=== PATIENT | female | born 1980 | race Caucasian/White ===

== ENCOUNTER → 2020-08-08 08:28 | Outpatient (BNVA) | payer OTHER, SELFPAY | PROVIDERS: Visit Provider Dietitian, Registered | DX: Z76.89 Persons encountering health services in other specified circumstances (principal) ==

== ENCOUNTER → 2020-09-22 08:12 | Outpatient (BNVA) | payer OTHER, SELFPAY | PROVIDERS: PCP Family Medicine; Visit Provider Surgery | DX: Z76.89 Persons encountering health services in other specified circumstances (principal) ==

== ENCOUNTER → 2020-10-07 08:46 | Outpatient (BNVA) | payer BC, SELFPAY | PROVIDERS: PCP Family Medicine; Visit Provider Physician Assistant ==

== ENCOUNTER → 2020-12-27 08:22 | Outpatient (BNVA) | payer BC, SELFPAY | PROVIDERS: PCP Family Medicine; Visit Provider Dietitian, Registered | DX: Z90.3 Acquired absence of stomach [part of] (principal) | CPT/HCPCS: 97803 ==

== ENCOUNTER → 2021-04-14 07:45 | Outpatient (BNVA) | payer BC, SELFPAY | PROVIDERS: PCP Family Medicine; Visit Provider Dietitian, Registered | DX: Z90.3 Acquired absence of stomach [part of] (principal) | CPT/HCPCS: 97803 ==

== ENCOUNTER → 2021-07-12 14:02 | Outpatient (BNVA) | payer BC, SELFPAY | PROVIDERS: PCP Family Medicine; Referring Provider Family Medicine; Visit Provider Physician Assistant Surgical ==

== ENCOUNTER → 2021-07-31 12:35 | Outpatient (BNVA) | payer BC, SELFPAY | PROVIDERS: PCP Family Medicine; Referring Provider Family Medicine; Visit Provider Surgery ==

== ENCOUNTER 2021-08-08 13:46 | Day surgery (SDC) | payer BC, SELFPAY ==
[2021-07-27 09:58] VITALS: BMI 26.3
[2021-07-31 13:51] LABS: MANUAL DIFF FLAG NO
[2021-07-31 14:11] LABS: Basophils Absolute Auto 0.1 X10*3/uL (0.0-0.2); Basophils Percent Auto 1.5 % (0-2); Eosinophils Absolute Auto 0.2 X10*3/uL (0.0-0.4); Eosinophils Percent Auto 2.6 % (0-4); Hematocrit 36.5 % (37.0-47.0); Hemoglobin 12.1 g/dl (12.0-16.0); Imm Gran Abs Auto 0.01 X10*3/uL (0.00-0.03); Imm Gran Pct Auto 0.2 % (0.0-0.4); Lymphocytes Absolute Auto 2.2 X10*3/uL (1.2-4.9); Lymphocytes Percent Auto 35.1 % (20-40); Mean Corpuscular HGB Conc 33.2 g/dl (31.0-35.0); Mean Corpuscular Hemoglobin 28.6 pg (27.0-33.0); Mean Corpuscular Volume 86.3 fL (80.0-98.0); Monocytes Absolute Auto 0.4 X10*3/uL (0.1-1.2); Monocytes Percent Auto 6.7 % (2-11); Neutrophils Absolute Auto 3.3 x10*3/uL (2.0-8.3); Neutrophils Percent Auto 53.9 % (45-73); Platelet Count 320 X10*3/uL (160-400); Red Blood Count 4.23 X10*6/uL (4.20-5.50); Red Cell Distribution Width 13.3 % (11.0-16.0); White Blood Count 6.2 X10*3/uL (4.8-10.8)
[2021-07-31 14:19] LABS: Estimated Average Glucose 100 mg/dL; Hemoglobin A1c % 5.1 %
[2021-07-31 14:20] LABS: INTERNATIONAL NORM RATIO 1.1 (0.9-1.1)
[2021-07-31 14:22] LABS: Partial Thromboplastin Time 35.9 SEC (24.1-38.0)
[2021-07-31 14:39] LABS: Alanine Aminotransferase 31 U/L (0-31); Albumin Level 4.1 g/dL (3.5-5.0); Alkaline Phosphatase 52 U/L (39-117); Anion Gap 14 (12-20); Aspartate Amino Transferase 20 U/L (5-31); Bilirubin Total 1.4 mg/dL (0.0-1.0); Blood Urea Nitrogen 15 mg/dL (9-16); C Reactive Protein 0.17 mg/dL (< or = 0.50); Calcium 8.9 mg/dL (8.4-10.2); Carbon Dioxide 24 mmol/L (22-29); Chloride 105 mmol/L (96-108); Cholesterol 215 mg/dL; Creatinine Clr Calc Pharmacy 90.2; Estimated Glomerular Filt Rate > 60; Glucose Fasting 93 mg/dL (60-99); HDL Cholesterol 91 mg/dL; Iron 83 mcg/dL (30-160); LDL Cholesterol Calculated 109 mg/dl; Percent Iron Saturation 24 % (15-50); Potassium 4.5 mmol/L (3.3-5.1); Sodium 138 mmol/L (135-145); Total Iron Binding Capacity 347 mcg/dL (228-428); Total Protein 7.3 g/dL (6.5-8.0); Triglycerides 75 mg/dL; Unsaturated Iron Binding 264 ug/dL
[2021-07-31 14:59] LABS: Ferritin 30 ng/mL (10-250); TSH reflex Free T4 0.54 uIU/mL (0.32-4.0); Vitamin D 25-OH Total 48.3 ng/mL (>30)
[2021-07-31 15:09] LABS: Folate 18.4 ng/mL (> or = 4.0); Vitamin B12 1067 pg/mL (200-900)
[2021-08-02 12:12] LABS: Calcium (PTHI) 9.2 mg/dL (8.6-10.2); PTHI 37 pg/mL (14-64)
[2021-08-04 14:07] LABS: Zinc 59 mcg/dL (60-130)
--- NOTE | 2021-08-05 00:31 | MHC.SHP ---
Pre-Procedural Eval Section A Date of Service: 08/05/21 The patient is an INPATIENT: No The History & Physical has been completed within 30 days and I have reviewed it.: Yes Section B Chief Complaint: Excessive and redundant skin Relevant Family History (Specify if Yes): No Relevant Social History: None Present Medications: None Medical History: No relevant PMH History of Previous Operations: Relevant previous surgery/procedure and date(s) (sleeve gastrectomy) Allergies: Allergies Allergy/AdvReac Type Severity Reaction Status Date / Time latex [LATEX] Allergy Intermediate MILD Verified 07/31/21 12:43 ITCHING wellbutrin Allergy Unknown anxiety Uncoded 07/31/21 12:43 extreme Review of Systems Sugical H&P ROS: Negative: Constitution, Cardiovascular, Respiratory, Neurological, Psychiatric, Hem-Onc, Allergic/Immunologic, Gastrointestinal, Genitourinary, Musculoskeletal, Integumentary, Endocrine and Eyes/Ears/Nose/Throat Exam Surgical H&P Exam: Normal: HEENT, Normal: Heart, Normal: Lungs, Normal: Extremities, Normal: Abdomen, Normal: Skin and Normal: Neurological Plan Diagnosis/Plan: Unchanged I have reviewed the history and physical and performed a pertinent physical examination on my patient. No changes have occurred unless specified.
[2021-08-05 01:46] LABS: Vitamin A 45 mcg/dL (38-98)
[2021-08-05 11:07] LABS: Vitamin B1 24 nmol/L (8-30)
--- NOTE | 2021-08-07 10:16 | P.CONAN_ITS ---
Documented by User: Lucie Baeza NP 08/07/21 10:24 HPI - Anesthesia Eval Consult details Narrative: 40yo F for Panniculectomy Pulmo cleared for GA s/p gastric sleeve 2020 PMFSH Active Problems Active Problems: All Active Problems (Updated 07/31/21 @ 15:15 by Silas Puckett MD) Cellulitis (Acute) Postgastrectomy malabsorption (Acute) Excess skin (Acute) Intestinal malabsorption following gastrectomy (Acute) Past Medical History Medical History (Updated 08/07/21 @ 10:23 by Lucie Baeza NP) Anemia COVID-19 vaccine series completed Hypothyroidism Intestinal malabsorption following gastrectomy [place] Obesity (BMI 30-39.9) RHETT (obstructive sleep apnea) Pulmonary hypertension Family History Family History Mother No problems noted. Father No problems noted. Brother No problems noted. Surgical History Surgical History (Updated 08/07/21 @ 10:57 by Maria De Jesus Mcclain PA-C) S/P bronchoscopy S/P cardiac cath S/P laparoscopic sleeve gastrectomy Social History Social History Are you a primary healthcare sales representative to a significant other at home: No Do you presently have visiting nurse or other home services: No Alcohol intake: current Alcohol intake frequency: holidays/special occasions only Patient Tobacco Use Status: Never used Tobacco Use of substances other than those prescribed or required for medical reasons: No Have you been hit, kicked, punched, or otherwise hurt by someone within the past year? If so, by whom?: No Are you DNR?: No Advance Directives: No Advance Directives Information Provided: No Advance Directives on File: No Recently lost weight without trying: No How much weight loss: 34pounds or more Eating poorly because of decreased appetite: No Nutrition screen score: 4 Nutrition Risks: No Nutritional Risk Patient : No FDLMP: 6 weeks ago : No Meds Allergies Allergy/AdvReac Type Severity Reaction Status Date / Time latex [LATEX] Allergy Intermediate MILD Verified 07/31/21 12:43 ITCHING wellbutrin Allergy Unknown anxiety Uncoded 07/31/21 12:43 extreme Active Medications: Current Medications Lactated Ringer's (Lr) 1,000 mls @ 100 mls/hr IVCONT .Q10H LACHELLE Home Medications Medication Instructions Recorded Confirmed Last Taken Type Celebrate MVI PO 10/07/20 07/31/21 Unknown History Celebrate calcium chews PO 10/07/20 07/31/21 Unknown History ambrisentan 10 mg tablet (Letairis) 10 mg PO DAILY 10/07/20 07/31/21 Unknown History biotin 5,000 mcg disintegrating 10,000 mcg PO DAILY 10/07/20 07/31/21 Unknown History tablet etonogestrel 68 mg subdermal SUBDERMAL 10/07/20 07/31/21 Unknown History implant (Nexplanon) fluoxetine 20 mg capsule 20 mg PO BID 10/07/20 07/31/21 08/08/21 History levothyroxine 112 mcg capsule 112 mcg PO DAILY 10/07/20 07/31/21 08/08/21 History lysine HCl 1,000 mg tablet 1,000 mg PO DAILY 10/07/20 07/31/21 Unknown History methylcellulose (laxative) 500 mg 500 mg PO BID PRN 10/07/20 07/31/21 Unknown History tablet (Citrucel) acetaminophen 500 mg tablet 500 mg PO Q6H PRN 07/27/21 07/31/21 Unknown History Exam Exam Date and Time: August 07, 2021 1016 Height,Weight and Vital Signs: Height 5 ft 4.5 in Weight 70.76 kg Pertinent Lab Results Pertinent Lab Results: Laboratory Tests 07/31/21 07/31/21 07/31/21 13:40 13:49 13:49 WBC 6.2 RBC 4.23 Hgb 12.1 Hct 36.5 L MCV 86.3 MCH 28.6 MCHC 33.2 RDW 13.3 Plt Count 320 MPV 9.0 L Immature Gran % (Auto) 0.2 Neut % (Auto) 53.9 Lymph % (Auto) 35.1 [place] % (Auto) 6.7 Eos % (Auto) 2.6 Baso % (Auto) 1.5 Lymph # (Auto) 2.2 [place] # (Auto) 0.4 Eos # (Auto) 0.2 Baso # (Auto) 0.1 Abs Immat Gran (auto) 0.01 Absolute Neuts (auto) 3.3 Absolute Nucleated RBC 0.000 Nucleated RBC % (auto) 0.0 PT INR APTT Sodium 138 Potassium 4.5 Chloride 105 Carbon Dioxide 24 Anion Gap 14 BUN 15 Creatinine 0.80 Estim Creat Clear Calc 90.2 Estimated GFR > 60 Random Glucose TNP Fasting Glucose 93 Estimat Average Glucose Hemoglobin A1c % Calcium 8.9 Iron 83 TIBC 347 % Saturation 24 Unsat Iron Binding 264 Ferritin 30 Total Bilirubin 1.4 H AST 20 ALT 31 Alkaline Phosphatase 52 C-Reactive Protein 0.17 Total Protein 7.3 Albumin 4.1 Triglycerides 75 Cholesterol 215 LDL Cholesterol, Calc 109 HDL Cholesterol 91 Vitamin A Vitamin B1 Vitamin B12 25-OH Vitamin D Total 48.3 Folate TSH 0.54 PTH Intact Calcium (PTH Intact) Zinc Blood Type B Positive Antibody Screen NEGATIVE 07/31/21 07/31/21 07/31/21 13:49 13:49 13:49 WBC RBC Hgb Hct MCV MCH MCHC RDW Plt Count MPV Immature Gran % (Auto) Neut % (Auto) Lymph % (Auto) [place] % (Auto) Eos % (Auto) Baso % (Auto) Lymph # (Auto) [place] # (Auto) Eos # (Auto) Baso # (Auto) Abs Immat Gran (auto) Absolute Neuts (auto) Absolute Nucleated RBC Nucleated RBC % (auto) PT INR APTT Sodium Potassium Chloride Carbon Dioxide Anion Gap BUN Creatinine Estim Creat Clear Calc Estimated GFR Random Glucose Fasting Glucose Estimat Average Glucose 100 Hemoglobin A1c % 5.1 Calcium Iron TIBC % Saturation Unsat Iron Binding Ferritin Total Bilirubin AST ALT Alkaline Phosphatase C-Reactive Protein Total Protein Albumin Triglycerides Cholesterol LDL Cholesterol, Calc HDL Cholesterol Vitamin A 45 Vitamin B1 24 Vitamin B12 1067 H 25-OH Vitamin D Total Folate 18.4 TSH PTH Intact Calcium (PTH Intact) Zinc Blood Type Antibody Screen 07/31/21 07/31/21 07/31/21 13:49 13:49 13:49 WBC RBC Hgb Hct MCV MCH MCHC RDW Plt Count MPV Immature Gran % (Auto) Neut % (Auto) Lymph % (Auto) [place] % (Auto) Eos % (Auto) Baso % (Auto) Lymph # (Auto) [place] # (Auto) Eos # (Auto) Baso # (Auto) Abs Immat Gran (auto) Absolute Neuts (auto) Absolute Nucleated RBC Nucleated RBC % (auto) PT 12.0 INR 1.1 APTT 35.9 Sodium Potassium Chloride Carbon Dioxide Anion Gap BUN Creatinine Estim Creat Clear Calc Estimated GFR Random Glucose Fasting Glucose Estimat Average Glucose Hemoglobin A1c % Calcium Iron TIBC % Saturation Unsat Iron Binding Ferritin Total Bilirubin AST ALT Alkaline Phosphatase C-Reactive Protein Total Protein Albumin Triglycerides Cholesterol LDL Cholesterol, Calc HDL Cholesterol Vitamin A Vitamin B1 Vitamin B12 25-OH Vitamin D Total Folate TSH PTH Intact 37 Calcium (PTH Intact) 9.2 Zinc 59 L Blood Type Antibody Screen Narrative Narrative: Exercise testing in pulmo clinic 07/27/21 Complete normalization of exercise physiology ECHO 07/2020 LVEF 60-65% LA mildly dilated Pulmo venous flow normal Trivial to small pericardial effusion located circumferentially. No evidence of tamponade Assessment and Plan Assessment Anesthesia Assessment: Chart Reviewed Documented by User: Delonte Miller 08/08/21 15:14 [facility] Past Medical History Medical History (Updated 08/07/21 @ 10:23 by Lucie Baeza NP) Anemia COVID-19 vaccine series completed Hypothyroidism Intestinal malabsorption following gastrectomy [place] Obesity (BMI 30-39.9) RHETT (obstructive sleep apnea) Pulmonary hypertension Functional capacity: independent ambulation Family History Family History Mother No problems noted. Father No problems noted. Brother No problems noted. Family history of problems with anesthesia: No Surgical History Surgical History (Updated 08/07/21 @ 10:57 by Maria De Jesus Mcclain PA-C) S/P bronchoscopy S/P cardiac cath S/P laparoscopic sleeve gastrectomy History of Problems with Anesthesia: No Social History Social History Are you a primary healthcare sales representative to a significant other at home: No Do you presently have visiting nurse or other home services: No Alcohol intake: current Alcohol intake frequency: holidays/special occasions only Patient Tobacco Use Status: Never used Tobacco Use of substances other than those prescribed or required for medical reasons: No Have you been hit, kicked, punched, or otherwise hurt by someone within the past year? If so, by whom?: No Are you DNR?: No Advance Directives: No Advance Directives Information Provided: No Advance Directives on File: No Recently lost weight without trying: No How much weight loss: 34pounds or more Eating poorly because of decreased appetite: No Nutrition screen score: 4 Nutrition Risks: No Nutritional Risk Patient : No FDLMP: 6 weeks ago : No Meds Allergies Allergy/AdvReac Type Severity Reaction Status Date / Time latex [LATEX] Allergy Intermediate MILD Verified 07/31/21 12:43 ITCHING wellbutrin Allergy Unknown anxiety Uncoded 07/31/21 12:43 extreme Home Medications Medication Instructions Recorded Confirmed Last Taken Type Celebrate MVI PO 10/07/20 07/31/21 Unknown History Celebrate calcium chews PO 10/07/20 07/31/21 Unknown History ambrisentan 10 mg tablet (Letairis) 10 mg PO DAILY 10/07/20 07/31/21 Unknown History biotin 5,000 mcg disintegrating 10,000 mcg PO DAILY 10/07/20 07/31/21 Unknown History tablet etonogestrel 68 mg subdermal SUBDERMAL 10/07/20 07/31/21 Unknown History implant (Nexplanon) fluoxetine 20 mg capsule 20 mg PO BID 10/07/20 07/31/21 08/08/21 History levothyroxine 112 mcg capsule 112 mcg PO DAILY 10/07/20 07/31/21 08/08/21 History lysine HCl 1,000 mg tablet 1,000 mg PO DAILY 10/07/20 07/31/21 Unknown History methylcellulose (laxative) 500 mg 500 mg PO BID PRN 10/07/20 07/31/21 Unknown History tablet (Citrucel) acetaminophen 500 mg tablet 500 mg PO Q6H PRN 07/27/21 07/31/21 Unknown History Exam Airway Mallampati Class: II TM Dist: >3cm Neck ROM: Full Loose/Missing/Broken Teeth: No (Implant and Cap on upper) Heart: rrr Lungs: clear breath sounds bilaterally Assessment and Plan Final Anesthetic Review Family History of Problems with Anesthesia: No History of Problems with Anesthesia: No NPO: Yes ASA Class: II Final Preanesthetic Review: Meds/Allgs Chart Reviewed and Anes Risks/Benef Reviewed Patient Risk: Intermediate Procedure Risk: Intermediate Anesthetic Plan Anesthetic Plan: GA Disposition: Standard PACU
[2021-08-08] VITALS (9 sets, daily range): BP systolic 94–111; BP diastolic 47–66; PULSE 57–98; RESP 14–20; TEMP 36.1–36.3; O2SAT 92–98
[2021-08-08 14:18] LABS: UPreg QC Valid YES; Urine Pregnancy NEGATIVE (NEGATIVE)
[2021-08-08] MEDS: Lactated Ringers 1,000 ML 100 ML IVCONT ×2 (14:20→21:54)
[2021-08-08 14:29] LABS: COVID-19 Test Negative (Negative)
--- NOTE | 2021-08-08 15:17 | PC.NURSE ---
pt voided in the bathroom
--- NOTE | 2021-08-08 16:26 | P.PNGS_ITS ---
Subjective Subjective Date of Service: 08/09/21 Interval history: Patient has mild incisional pain, but was able to ambulate and use the incentive spirometer. She is tolerating phase 1 bariatric diet Physical Exam Vital Signs: Vital Signs: Last Vital Signs Temp 97.2 F 08/08/21 13:57 Pulse 57 08/08/21 13:57 Resp 18 08/08/21 13:57 BP 101/66 08/08/21 13:57 Pulse Ox 98 08/08/21 13:57 Body Mass Index 26.3 GI: Inspection: Yes normal to inspection, Yes incision (clean, dry and intact, flaps & umbilicus viable) and Yes other (Daniel drain with serosanguinous fluid) Extrem: Right lower extremity: normal to inspection (no calf tenderness) Left lower extremity: normal to inspection (no calf tenderness) Objective Data Active Medications Lactated Ringer's (Lr) 1,000 mls @ 100 mls/hr IVCONT .Q10H LACHELLE Last Admin: 08/08/21 14:20 Dose: 100 mls/hr Documented by: LELE Lactated Ringer's (Lr) 1,000 mls @ 100 mls/hr IVCONT .Q10H [facility] Labs CBC & Chem 7: 08/09/21 05:33 08/09/21 05:33 Labs: Laboratory Results - last 24 hr 08/08/21 08/08/21 13:50 13:50 Urine Test NEGATIVE COVID-19 (ELSY) Negative COVID-19 Clin Com See Note Procedures Date of Service Date of Service: 08/09/21 Progress Note: A&P Assessment and plan (1) Cellulitis: Status: Acute (2) Excess skin: Status: Acute Assessment and Plan: Doing well D/C Hanson and ambulate with assistance Dressing were changed and explained to the patient how to do the dressing changes VNA will be arranged Check am labs. If OK, will discharge home? Fall Risk Details Current Medications: Current Medications Lactated Ringer's (Lr) 1,000 mls @ 100 mls/hr IVCONT .Q10H LACHELLE Last Admin: 08/08/21 14:20 Dose: 100 mls/hr Documented by: Lactated Ringer's (Lr) 1,000 mls @ 100 mls/hr IVCONT .Q10H [facility] Time Spent With Patient Time: Total time spent is greater than 50% in coordination of care (as documented) at patient's floor/unit and/or counseling patient: Time with patient: less than 15 minutes Quality Stroke Does the patient have a stroke diagnosis?: No VTE Prior VTE?: No VTE Risk Level:: Surgical - moderate VTE Device Contraindication: N/A - Device Ordered VTE Drug Contraindication: Treatment Not Indicated
--- NOTE | 2021-08-08 16:30 | PM.OP ---
Brief Operative Note Date of Service: 08/08/21 Pre-op diagnosis: panniculitis and excess skin Post-op diagnosis: same Procedure: PROCEDURE: Panniculectomy with umbilical transposition and omental flap INDICATION: This a 40 year old female who underwent laparoscopic sleeve gastrectomy on 09/22/2019. She had an excellent result achieving a BMI of 26.4 kg/m2 with a total weight loss of 97.4lbs. As a result, she has developed panniculitis which has not resolved despite continuous use of clotrimazole ointment. On exam she has extreme skin laxity and the abdominal pannus completely hiding the genitalia. Panniculectomy was recommended. We discussed the two options for the panniculectomy of using a combined vertical and horizontal incisions or just a horizontal (bikini) incision. It was my recommendation to do only horizontal incision based on her body habitus and skin laxity. The patient agreed with this. Risks and complications were discussed with the patient including bleeding, infection, umbilical loss, flap necrosis, asymmetry, dehiscence, seroma, VTE. The patient understood the risks and was in agreement to proceed with surgery. PROCEDURE: The incisions were appropriately marked at the preop area with the patient standing and laying down. After induction of general anesthesia a Hanson catheter and pneumatic compression devices were placed. The patient was prepped and draped in the usual sterile manner and the incisions were marked again and confirmed. The skin was infiltrated with lidocaine and epinephrine. The #10 blade scalpel was used for the large incisions and the #15 blade scalpel for the umbilicus. Cautery was used to divide the subcutaneous tissues until the fascia was identified. Then I used the Thunderbeat (Olympus) to separate the pannus from the fascia. The inferior incision was made initially and I mobilized the flap for a several centimeters cephalad to the umbilicus. The umbilicus was incised circumferentially and detached from the surrounding tissues all the way to the fascia while its stalk was preserved. With the patient in reflex position I confirmed that the skin flaps were appropriate and would allow for the tissues to come together with reasonable tension. At that point a horizontal incision was made 4 cm above the umbilicus. #10 blade was used for the skin, cautery for the dermis and the Thunderbeat for the remaining tissues. An omental flap was raised from the upper flap in order to fill the space under the skin and support the closure of the two flaps. In addition the inferior flap was mobilized caudally for a few centimeters to create a space for the omental flap as well as relieve tension from the closure. A circumferential incision was made at the area where the umbilicus would be re-implanted. The umbilicus was appropriately oriented and was delivered through the defect and was secured in place with a [place]. No bleeding was noted anywhere. One Daniel drain was placed from the right corner of the horizontal incision across the wound and was secured in place with a silk suture. The omental flap was secured under the inferior flap with several interrupted 3.0 Monocryl sutures. The two flaps were brought together and were attached at the midline of the horizontal incision with a #3.0 Monocryl suture. At that point the umbilicus was properly oriented and was re-approximated to the skin with 8 interrupted 3.0 Monocryl sutures. In a similar fashion the skin flaps were re-approximated with multiple 3.0 Monocryl sutures. The skin was closed in all incisions and umbilicus with 4.0 Monocryl sutures. Steri-strips, xeroform gauzes and gauzes were used to cover the incisions. An abdominal binder was also placed. The was awaken and was transferred to the recover room in a stable condition. I was present and performed the entire procedure. Mehul Mcclain was the processing assistant. William Puckett MD, PhD, FACS Surgeon: Silas Puckett MD ?? Surgeon: Silas Puckett MD Anesthesia: GETA and local Was an Inside Sales Account Representative used for this Procedure?: No Inside Sales Account Representative: Maria De Jesus Mcclain Estimated blood loss (mL): 10 Pathology: other (Abdominal pannus) Condition: stable Disposition: PACU
--- NOTE | 2021-08-08 19:40 | P.DS_ITS ---
DS: Providers Provider Date of Service: 08/09/21 Primary care physician: Robinson Lenz MD DS: Diagnosis Discharge Diagnosis (1) Cellulitis: Status: Acute (2) Excess skin: Status: Acute DS: Summary Hospital Course Hospital Course: DISCHARGE SUMMARY ADMITTING DIAGNOSIS: panniculitis, s/p lap sleeve gastrectomy DISCHARGE DIAGNOSIS: The same. PAST SURGICAL HISTORY: Lap sleeve gastrectomy PROCEDURE: Panniculectomy. HISTORY OF PRESENT ILLNESS: The patient is a 40 year-old woman with a BMI of 26.4 kg/m2 and associated co- morbidities as described previous. The patient had a laparoscopic sleeve gastrectomy March 2020 and has lost a total of 100 lbs. As a result of the massive weight loss she developed a large abdominal pannus and persistent panniculitis recalcitrant to medical treatment. The patient was electively scheduled for panniculectomy. Risks and complications of the surgery were discussed with the patient in advance, particularly the possibility of , pulmonary embolism, skin necrosis, loss of umbilicus, flap necrosis, wound dehiscence, flap asymmetry, bleeding requiring transfusion. The patient understood all the risks and was in agreement with the surgical plan. On postoperative day #1 the patient was started on Phase 3 bariatric diet. The Hanson was discontinued. She was allowed to ambulate and she had no dizziness. During the first day, the patient did fairly well, having some incisional pain, but able to ambulate adequately and to tolerate liquids well. All dressings were taken down and the all incisions were inspected. There was no evidence of infection or bleeding or significant discharge. All flaps and umbilicus were viable and there was no dehiscence. GUEVARA drains had minimal output with serosanguinous fluid. Since the patient is doing well, we decided that the patient was ready to be discharged. The patient was given instructions to follow-up with me next week and to call my office for any fever over 101, persistent abdominal pain, nausea, vomiting, and symptoms of DVT such as calf tenderness, or leg swelling, or pulmonary embolism such as chest pain or shortness of breath. The patient was also instructed to drink 40-60 ounces of liquids per day using the 1-ounce cups and start on 3 Pure protein shakes per day. The patient was given prescription for Tylenol for pain, Zofran prn for nausea and a 10-day course of Keflex twice a day. The patient was encouraged to ambulate and use the incentive spirometer. However it was strongly recommended to do so with assistance and avoid any abdominal straining for at least one month. The patient was allowed only to do sponge baths, and encouraged to use the recliner at home and not the bed. All of these instructions were given to the patient personally. All questions were answered and the patient understood all instructions. The instructions were given to the patient in print as well. Time Spent with Patient Time attestation: Total time spent providing and/or coordinating discharge s ervices: Discharge coordination time: Less than 30 minutes Quality: Stroke Does the patient have a stroke diagnosis?: No Physical Exam Vital Signs: Vital Signs: Last Vital Signs Temp 97.2 F 08/08/21 13:57 Pulse 57 08/08/21 13:57 Resp 18 08/08/21 13:57 BP 101/66 08/08/21 13:57 Pulse Ox 98 08/08/21 13:57 Body Mass Index 26.3 DS: Data Data Completed and Pending Pending studies at discharge: Pending at discharge 08/08/21 19:39 Surgical [PTH] Routine Labs on day of discharge: Laboratory Results - last 24 hr 08/08/21 08/08/21 13:50 13:50 Urine Test NEGATIVE COVID-19 (ELSY) Negative COVID-19 Clin Com See Note Discharge Plan Discharge Patient Disposition: Home Health Service Referrals: [facility] [Outside] - 1 Day ([facility] FOR POST SURGICAL WOUND ASSESSMENT AND DRESSING CHANGES ANSD MONITORING OF J-P DRAIN ([facility] PRE ARRANGED WITH TONNY HANEY ON 08/02/22 PATIENT WILL BE STAYING AT HER PARENTS [address]SE ON [address] FOR ONE WEEK THEN GOING BACK TO HER HOME IN [place] ) Robinson Dalton MD [Primary Care Provider] - 1 Week Discharge Medications: New docusate sodium [Colace] 100 mg capsule 100 mg PO BID Qty: 60 RF: 0 Continued acetaminophen 500 mg Tablet 500 mg PO Q6H PRN (Reason: Pain) RF: 0 Nexplanon 68 mg implant subdermal RF: 0 ambrisentan [Letairis] 10 mg tablet 10 mg PO DAILY RF: 0 levothyroxine 112 mcg capsule 112 mcg PO DAILY RF: 0 fluoxetine 20 mg capsule 20 mg PO BID RF: 0 Celebrate MVI PO RF: 0 Celebrate calcium chews PO RF: 0 Citrucel 500 mg tablet 500 mg PO BID PRN (Reason: Constipation) RF: 0 biotin 5,000 mcg tablet,disintegrating 10,000 mcg PO DAILY RF: 0 lysine HCl 1,000 mg tablet 1,000 mg PO DAILY RF: 0 cephalexin 500 mg capsule 500 mg PO Q12H Qty: 30 RF: 2 Discharge Orders: Discharge Order (Routine); Ordered 08/09/21 Ordered By: Silas Puckett Activity Restrictions/Additional Instructions: 1) Record drain output for all 24 hour periods on drain output sheet. Bring sheet at the next office visit 2) Start Keflex antibiotic 3) No showers. Only sponge baths 4) Avoid any tension on the abdomen and always have help getting up. Use your arms to push off from chair/bed. 5) Take 1 tab of Colace and one tablespoon of Metamucil daily 6) Diet: 4 protein shakes, or 3 shakes and one bar, or 3 shakes and one meal (2oz meat and 2oz salad) 7) Wear binder at all times 8) Change dressings daily and send pictures to Dr. Puckett. Replace loose steri-strips and xeroform gauze along the incisions and umbilicus. 9) Supplies needed: ABD pads, 4x4 dressings, xeroform gauze, 1/2'' steri-strips, paper tape. You will need to use several of the above supplies on a daily basis.
[2021-08-08] MEDS: oxyCODONE HCl Immed Release 5 MG TABLET 10 MG PO (21:23)
[2021-08-08] MEDS: 0.9 % Sodium Chloride Flush 3 ML SYRINGE IVFLUSH (21:54)
[2021-08-09] MEDS: ondansetron HCL 4 MG/2 ML VIAL IVPUSH ×2 (01:17→09:47)
[2021-08-09] MEDS: ceFAZolin Sodium/Dextrose,Iso 2 GM/50 ML PIGGYBACK IV ×2 (01:18→09:48)
[2021-08-09] MEDS: Famotidine/PF 20 MG/2 ML VIAL IVPUSH (03:35)
[2021-08-09 04:00] VITALS: BP 98/55; PULSE 62; RESP 18; TEMP 36.1; O2SAT 97
[2021-08-09] MEDS: Levothyroxine Sodium 112 MCG TABLET PO (05:44)
[2021-08-09 05:46] LABS: MANUAL DIFF FLAG NO
[2021-08-09 05:52] LABS: Basophils Percent Auto 0.2 % (0-2); Hematocrit 30.2 % (37.0-47.0); Imm Gran Abs Auto 0.03 X10*3/uL (0.00-0.03); Imm Gran Pct Auto 0.3 % (0.0-0.4); Lymphocytes Absolute Auto 1.2 X10*3/uL (1.2-4.9); Lymphocytes Percent Auto 11.6 % (20-40); Mean Corpuscular HGB Conc 33.1 g/dl (31.0-35.0); Mean Corpuscular Hemoglobin 28.4 pg (27.0-33.0); Mean Corpuscular Volume 85.8 fL (80.0-98.0); Mean Platelet Volume 9.2 fL (9.4-12.3); Monocytes Absolute Auto 0.5 X10*3/uL (0.1-1.2); Monocytes Percent Auto 4.8 % (2-11); Neutrophils Absolute Auto 8.8 x10*3/uL (2.0-8.3); Neutrophils Percent Auto 83.1 % (45-73); Platelet Count 240 X10*3/uL (160-400); Red Blood Count 3.52 X10*6/uL (4.20-5.50); Red Cell Distribution Width 13.5 % (11.0-16.0); White Blood Count 10.6 X10*3/uL (4.8-10.8)
[2021-08-09 06:09] LABS: Anion Gap 12 (12-20); Blood Urea Nitrogen 10 mg/dL (9-16); Calcium 8.3 mg/dL (8.4-10.2); Carbon Dioxide 24 mmol/L (22-29); Chloride 103 mmol/L (96-108); Creatinine Clr Calc Pharmacy 91.3; Estimated Glomerular Filt Rate > 60; Glucose Random 155 mg/dL (60-115); Potassium 4.5 mmol/L (3.3-5.1); Sodium 134 mmol/L (135-145)
[2021-08-09 08:00] VITALS: BP 93/50; PULSE 56; RESP 18; TEMP 36.4; O2SAT 97
[2021-08-09] MEDS: Lactated Ringers 1,000 ML 100 ML IVCONT (09:46)
[2021-08-09] MEDS: Docusate Sodium 100 MG CAPSULE PO (09:47)
[2021-08-09] MEDS: FLUoxetine HCl 20 MG CAPSULE PO (09:47)
--- NOTE | 2021-08-09 10:18 | MHC.CM.PN ---
NURSE DINING CAR HOP NOTE LATE ENTRY FROM 08/02/21 RECIVED MESSAGE FROM BRETT TERRY WITH THE BARIATRIC SURGEONS OFFICE. ABOUT THIS PATIENT COMING IN ON 08/08/21 AND DISCHARGED ON 08/09/21 AND WILL NEED NURSING FOR DRESSING CHANGES QD AND J-P DRin monitoring and also teach patient about the dressing changes. t/c to patient ,[facility], she was informed tha5 some one from case management would be calling her, reviewed vna agencies in the area. she chose the [facility] and within her ins contract. i informed her i would call the [facility] liason lissa and that merlene would call her after she obtained more information from the bariatric surgeon office. electronic medical record reviewed along with case discussed with staff nurse , patient will be discharged home today to her parents house on [facility] patient lives alone in home in [place] she is avtive , independent in all adls and mobility , she has no service or dme services in the home, she is employed at [employer] and works from home, educated about the importance of havinh an health care proxy confirmed that the [place] will be out to see her for nursing on 08/09/21 for daily dressing changes and teaching to patient , and j-p drainage monitoring. discharge plan home with referral to the na for nursing for qd dresisng changes and j-p mionitoring transportation family
--- NOTE | 2021-08-09 10:38 | HO.POSTANES ---
Post Anesthesia Evaluation Post Anesthesia Evaluation Vital Signs: Vital Signs Temp Pulse Resp BP Pulse Ox 08/09/21 08:00 97.5 F 56 18 93/50 L 97 08/09/21 04:00 97.0 F 62 18 98/55 L 97 08/08/21 23:48 96.9 F 70 18 95/54 L 94 Anesthesia: General Endotracheal-GETA Mental Status: Awake Pain Control: Satisfactory Nausea/Vomiting: None Hydration: Adequate Anesthesia-Related Issues: No Anes. Related Issues Comments: juan
[2021-08-09 12:00] VITALS: BP 106/55; PULSE 67; RESP 18; TEMP 36.5; O2SAT 99
== END 2021-08-09 13:15 | disposition home health service (06) ==
LOC: HO.SSS 13:46 → HO.S3 16:38
PROVIDERS: Nurse Practitioner; Physician Assistant; Absent Provider Surgery; PCP Family Medicine; Visit Provider Surgery
PROC: 0JB80ZZ Excision of Abdomen Subcutaneous Tissue and Fascia, Open Approach (ICD-10-PCS; CPT 15830; principal; 2021-08-08 15:20)
DX: L98.7 Excessive and redundant skin and subcutaneous tissue (principal); K91.2 Postsurgical malabsorption, not elsewhere classified; M79.3 Panniculitis, unspecified; L03.90 Cellulitis, unspecified; Z98.84 Bariatric surgery status; Z90.3 Acquired absence of stomach [part of]; E66.9 Obesity, unspecified; Z68.26 Body mass index [BMI] 26.0-26.9, adult; I27.21 Secondary pulmonary arterial hypertension; R91.8 Other nonspecific abnormal finding of lung field; D64.9 Anemia, unspecified; E03.9 Hypothyroidism, unspecified; G47.33 Obstructive sleep apnea (adult) (pediatric); R70.0 Elevated erythrocyte sedimentation rate; Z79.899 Other long term (current) drug therapy; Z88.8 Allergy status to other drugs, medicaments and biological substances; Z91.040 Latex allergy status; Z20.822 Contact with and (suspected) exposure to COVID-19
CPT/HCPCS: 15830; 36415; 80048; 80053; 80061; 81025; 82306; 82607; 82728; 82746; 83036; 83540; 83970; 84425; 84443; 84590; 84630; 85025; 85610; 85730; 86140; 86850; 86900; 86901; 87635; 88304; 99024; C1758; J0131; J0690; J1100; J2250; J2370; J2405; J2550; J3010

== ENCOUNTER → 2021-08-14 07:25 | Outpatient (BNVA) | payer BC, SELFPAY | PROVIDERS: PCP Family Medicine; Referring Provider Family Medicine; Visit Provider Surgery ==

== ENCOUNTER → 2021-08-30 08:00 | Outpatient (BNVA) | payer BC, SELFPAY | PROVIDERS: PCP Family Medicine; Referring Provider Family Medicine; Visit Provider Surgery ==

== ENCOUNTER → 2021-10-04 08:02 | Outpatient (BNVA) | payer BC, SELFPAY | PROVIDERS: PCP Family Medicine; Visit Provider Dietitian, Registered | DX: E66.3 Overweight (principal); Z68.25 Body mass index [BMI] 25.0-25.9, adult | CPT/HCPCS: 97803 ==

== ENCOUNTER 2021-10-23 15:29 | Outpatient (REF) | payer BC, SELFPAY ==
[2021-10-23 16:15] LABS: MANUAL DIFF FLAG NO
[2021-10-23 16:44] LABS: Basophils Absolute Auto 0.1 X10*3/uL (0.0-0.2); Eosinophils Absolute Auto 0.1 X10*3/uL (0.0-0.4); Eosinophils Percent Auto 1.5 % (0-4); Hemoglobin 12.8 g/dl (12.0-16.0); Imm Gran Abs Auto 0.01 X10*3/uL (0.00-0.03); Imm Gran Pct Auto 0.1 % (0.0-0.4); Lymphocytes Absolute Auto 2.6 X10*3/uL (1.2-4.9); Mean Corpuscular HGB Conc 32.8 g/dl (31.0-35.0); Mean Corpuscular Hemoglobin 28.3 pg (27.0-33.0); Mean Corpuscular Volume 86.3 fL (80.0-98.0); Mean Platelet Volume 8.8 fL (9.4-12.3); Monocytes Absolute Auto 0.4 X10*3/uL (0.1-1.2); Monocytes Percent Auto 6.4 % (2-11); Neutrophils Absolute Auto 3.5 x10*3/uL (2.0-8.3); Platelet Count 326 X10*3/uL (160-400); Red Blood Count 4.52 X10*6/uL (4.20-5.50); Red Cell Distribution Width 12.9 % (11.0-16.0); White Blood Count 6.8 X10*3/uL (4.8-10.8)
== END 2021-10-23 15:30 | disposition home or self-care (01) ==
LOC: HO.LAB 15:29
PROVIDERS: PCP Family Medicine; Referring Provider Family Medicine; Visit Provider Physician Assistant
DX: Z98.84 Bariatric surgery status (principal); Z98.890 Other specified postprocedural states; Z90.3 Acquired absence of stomach [part of]
CPT/HCPCS: 36415; 85025

== ENCOUNTER → 2022-03-28 11:03 | Outpatient (BNVA) | payer BC, SELFPAY | PROVIDERS: PCP Family Medicine; Referring Provider Physician Assistant; Visit Provider Dietitian, Registered | DX: Z98.84 Bariatric surgery status (principal) | CPT/HCPCS: 97803 ==

== ENCOUNTER 2024-09-02 13:58 | Outpatient (AMB) | payer BC, SELFPAY ==
--- NOTE | 2024-09-02 14:00 | A.OFFVIS_ITS ---
VS Expanded 09/02/24 14:18 BP 117/68 Blood Pressure Location Rt brachial Blood Pressure Position Sitting Pulse 64 Pulse Source Pulse Oximeter Temp 97.3 F Temperature Source Temporal Artery Scan Pulse Oximetry 99 Oxygen Delivery Method Room Air Height 5 ft 4.5 in Weight 191 lb 12.8 oz BMI 32.4 Body Fat % 39.0 Body Fat Mass 74.8 Fat Free Mass 116.8 Visceral Fat Rating 9.0 Body Water % 43.5 Body Water Mass 83.4 Muscle Mass/Score 110.8 Basal Metabolic Rate/Score 1,612 Intake Visit Reasons: OV PO LSG 09/22/19 Engineer Design And Construction Required: No Allergies latex [LATEX] Allergy (Intermediate, Verified 09/02/24 14:08) MILD ITCHING wellbutrin Allergy (Unknown, Uncoded 08/30/21 08:04) anxiety extreme Medication List - Last Reconciled 09/02/24 by HARRISON Correa acetaminophen 500 mg PO Q6H PRN biotin 10,000 mcg PO DAILY [Celebrate calcium chews PO] [Celebrate MVI PO] [collagen orally; ] etonogestrel (Nexplanon) subdermal fluoxetine 20 mg PO BID levothyroxine 112 mcg PO DAILY lysine HCl 1,000 mg PO DAILY HPI Comments Details: Patient is a 43-year-old female who returns to the office today in follow-up. She is approximately 3 years 11 months post sleeve gastrectomy performed on 09/22/[address] Davidson. She also had a panniculectomy performed by Dr. Puckett on 08/08/2021. She was last seen in the office in 04/04/2022 with a weight of 160 lb and a BMI of 27. Weight today is 191.8 lb and a BMI of 32.4. She has not been seen in the office for approximately 2 years. She did undergo right rotator cuff surgery for a tear. This occurred in 03/05/2024. She has since been recovering and is now cleared to exercise as she wishes. Meal plan: nothing structured Exercise plan: walking dog Any post op complications: none RHETT: resolved DM: never HTN: never Hyperlipidemia: never GERD:?0-5 scale ??0 = no symptoms ??1 = symptoms noticeable but not bothersome 2 =symptoms bothersome but not daily ? 3 = symptoms bothersome and daily 4 = symptoms affect daily activities 5 = symptoms are incapacitating, unable to do daily activities ? How bad is the heartburn: 0 ? Heartburn while lying down: 0 ? Heartburn when standing up: 0 ? Heartburn after meals: 0 ? Does heartburn change your diet: 0 ? Does heartburn wake you up from sleep: 0 ? Do you have difficulty swallowin ? Do you have pain with swallowin ? If you take medicine for your reflux, does this affect your daily life: 0 Satisfaction with present condition - satisfied or not satisfied: not satisfied [facility] Medical History Postgastrectomy malabsorption COVID-19 vaccine series completed Intestinal malabsorption following gastrectomy [place] Hypothyroidism Anemia RHETT (obstructive sleep apnea) Pulmonary hypertension Obesity (BMI 30-39.9) Surgical History Hx of rotator cuff surgery S/P laparoscopic sleeve gastrectomy S/P bronchoscopy S/P cardiac cath Family History Mother No problems noted. Father No problems noted. Brother No problems noted. Social History Are you a primary care manager cna to a significant other at home: No Do you presently have visiting nurse or other home services: No Alcohol intake: current Alcohol intake frequency: holidays/special occasions only Patient Tobacco Use Status: Never used Tobacco service: No Current occupational status: employed Physical Exam Const General: cooperative and no acute distress Orientation/consciousness: patient oriented x3 Resp Effort & Inspection: normal respiratory effort Auscultation: clear to auscultation bilaterally Cardio Rate: regular rate Rhythm: regular rhythm GI Inspection: Yes normal to inspection and Yes incision (well healed) Palpation (GI): Soft to palpation and no masses Neuro General: patient oriented x3 Assessment & Plan Assessment & Plan (1) S/P laparoscopic sleeve gastrectomy: Comment: IZABELA 09/22/19, Dr. Peterson Code(s): Z98.84 - Bariatric surgery status Category: Surgical Plan: Patient has returned to the office after several year absence. She was given information regarding the right BMI lisha. we will also check yearly labs. She was encouraged to return to the gym, goal of burning 300 calories per day. We will have her return to the office in approximately 6 weeks. She was also encouraged to text weight weekly. She was encouraged to buy a body composition scale. Call if any questions or concerns. Orders: Orders Hemoglobin A1c Today Z98.84 - Bariatric surgery status Lipid Panel Today Z98.84 - Bariatric surgery status Comprehensive Met. Panel Today Z98.84 - Bariatric surgery status Zinc Today Z98.84 - Bariatric surgery status C Reactive Protein Today Z98.84 - Bariatric surgery status Vitamin B1 Today Z98.84 - Bariatric surgery status Vitamin A Today Z98.84 - Bariatric surgery status Ferritin Today Z98.84 - Bariatric surgery status Vitamin D 25-OH Total Today Z98.84 - Bariatric surgery status Insulin Today Z98.84 - Bariatric surgery status Complete Blood Count Auto Diff Today Z98.84 - Bariatric surgery status IRON PROFILE Today Z98.84 - Bariatric surgery status Vitamin B12 and Folate Today Z98.84 - Bariatric surgery status TSH reflex Free T4 Today Z98.84 - Bariatric surgery status
--- OUTSIDE RECORDS SUMMARY | 2024-09-02 14:00 | XMS_ITS | Data Portability ---
Author Organization [facility] Address [address] [facility], [address] [place] [address] Care Team Providers Care Varnisher Name Role Phone YOU BLOUNT Primary Care Provide r Assessment No assessment recorded. Plan of Treatment Reminders Order Date Submit Date Provider Last Modified By Organization Details Last Modified Time Details Appointments Establish ed TH 2024 12:10P M JOHN LEE MD Not available Not available Not available Lab None recorded. Referral physical therapist referral - S/P [facility]23 024 [facility], [address] [place], [place] [address]silviano Tripathi, JORDY Mcgee, [id number], 04/16/2024 13:50:51 Procedures None recorded. Surgeries None recorded. Imaging None recorded. Medication Orders None recorded. Patient TargetsNo targets recorded. Patient InstructionsNo instructions recorded. Reason for Referral Physical Therapist Referral for Strain of rotator cuff of shoulder POST OP REHAB S/P Arthroscopic Cuff Repair-Right Shoulder IF BICEP TENODESIS: NO ACTIVE ELBOW FLEXION X 3WEEKS NO RESISITED ELBOW FLEXION X 8 WEEKS Referring Physician: John Lee, Orthopedic Surgery, Encounter Date: 04/16/2024 Results Created Date Observation Date Name Description Value Unit Range Abnormal Flag Note LastModifiedBy Organization Detail LastModifiedTime 12/25/19 24 11/21/2023 MRI, shoul vern, w/o contr ast No observ ation record ed. [email or web address] Not Available 2023 08:43:18 Result Notes None recorded. Problems Name Problem SNOMED Code Status Onset Date Resolution Date Notes Provider Name and Address Organization Details Recorded Time Strain of rotator cuff of shoulder 075301107 Active 024 Albina bartlett [facility] 4 12:38:23 Problem Notes None recorded. Procedures Surgical History Date Name Laterality Status Provider Name and Address Organization Details Recorded Time 4 Orthopaedic Surgery completed Ionmarvin Chang [facility] 04/16/2024 13:35:33 2 Other completed Kymberly Kaur [facility] 12/26/2023 15:00:31 0 Other completed Ly Nixon [facility] 03/23/2024 11:23:00 Imaging Results Imaging Date Name Status LastModified by Organiz ation Details LastModified Time 11/21/2023 MRI, shoulder, w/o contrast completed [email or web address] Information not available 12/25/2023 08:43:18 Procedure Notes None recorded. Medical Equipment None Reported. Allergies Allergen ID Allergen Name Allergen Category Reaction Reaction Severity Criticality Documentation Date Start Date Code Code System Note Provider Name and Address Organization Details Recorded Time 20360117 latex environme nt,medica tion Not available Not available Not available 12/26/2023 43807 91 RxNorm Kymberly bartlett [facility] 14:59:36 Medications Name Sig Start Date Stop Date Status Note LastModified by Organization Details LastModified Time fluoxetin e 40 mg capsule Take 1 capsule every day by oral route. active Not Available Not Available No t Available levothyro xine 100 mcg tablet Take 1 tablet every day by oral route. active Not Available Not Available No t Available Percocet 5 mg-325 mg tablet 1 tabs PO Q 4-6 hours prn pain 03/23 completed POST OP PAIN MEDICATI ON Not Available Not Available Not Available cannabidi ol (CBD) extract active Not Available Not Available Not Available Vitals Date Recorded Body height Body mass index (BMI) Body weight Provider Name and Address Organization Details Last Updated DateTime 12/26/2023 162.56 cm 29.2 kg/m2 28356.7 g Kymberly Kaur [facility] 12/26/2023 14:59:30 Date Recorded Body height Body mass index (BMI) Body weight Provider Name and Address Organization Details Last Updated DateTime 03/23/2024 162.56 cm 29.2 kg/m2 95810.7 g Ly Nixon [facility] 03/23/2024 11:21:55 Date Recorded Body height Provider Name an d Address Organization Details Last Updated DateTime 04/16/2024 162.56 cm Ion Lopeziscoll [facility] 04/16/2024 13:34:49 Date Recorded Body height Provider Name an d Address Organization Details Last Updated DateTime 06/25/2024 162.56 cm Lobo Dixon [facility] 06/25/2024 11:07:41 Social History Question Answer Notes LastModified by [employer] Details LastModified Time Tobacco Smoking Status Never Smoker [facility] 12/26/2023 14:56:56 What Is Your Level Of Alcohol Consumption? Occasional Information not available 12/26/2023 How Many Times Per Week Do You Consume Alcohol? 1-2 Times Per Week Information not available 03/23/2024 Do You Or Have You Ever Used E-cigarettes Or Vape? 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 1-2 Times Per Week Information not available 03/23/2024 Have You Had Cortisone? Yes Information not available 12/26/2023 Do You Or Have You Ever Used Smokeless Tobacco? Never Used Smokeless Tobacco Information not available 12/26/2023 Sex: Unknown Functional Status Question Answer Note LastModified by Organizat ion Details LastModified Time What is your exercise level? Occasional Information not available 03/23/2024 Mental Status None recorded. Family History Relationship Description Onset Age of this Age Resolved Age Notes LastModified by Organization Details LastModified Time Father No current problems or disability Not available 12/25 14:59:57 Mother No current problems or disability Not available 12/25 14:59:57 Medical History Condition Response Blood Clots / Phlebitis N Heart Problems N HIV or AIDS N High Blood Pressure N Depression or Anxiety Y Irregular Heartbeat N MRSA N Any Other Significant Medical Issues N Emphysema / Chronic Bronchitis N Reaction to General/Local Anesthesia N Weight Gain / Loss N Hepatitis / Jaundice N Kidney / Bladder Infections N Diabetes N Bleeding Disorder N Hearing Loss N Angina, Heart Failure or Attack N Seizures / Epilepsy N Night Sweats N Osteoarthritis / Rheumatoid arthritis / Other N Cancer N Stroke N Chemical Dependency / Alcoholism N Ulcer / Stomach Bleeding / Indigestion N Visual Loss or Glaucoma N Thyroid Disorder Y Psoriasis / Skin Rash N Heart Disease N Pulmonary Embolism N Asthma / Shortness of Breath / 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 Obstetrics History GPAL:G 0 P 0 0 0 0 Past Encounters Encounter ID Performer Location Encounter Start Date Encounter Closed Date Diagnosis/Indication Diagnosis SNOMED-CT Code Diagnosis ICD10 Code [id number] JOHN LEE MD [address] [address] 12/26/2023 14:45:35 12/26/2023 15:52:12 Bursitis of right shoulder 4867248743 09458 M75.51 Bone spur of right shoulder 5236761499 23852 M25.711 Pain of ri ght shoulder joint 9277572412 9422814 M25.511 Rupture of rotator cuff of right shoulder 7613497468 6601361 M75.130 [id number] HARRISON MAX [address] [address] 03/23/2024 11:09:06 03/23/2024 15:44:12 Pain of right shoulder joint 9739765202 3177911 M25.511 M75.51 M75.41 M75.637 [id number] JOHN LEE MD [address] [address] 04/16/2024 13:14:04 04/16/2024 13:49:41 Strain of rotator cuff of shoulder 563311659 S46.011D [id number] JOHN LEE MD [address] [address] 06/25/2024 11:07:09 06/25/2024 17:40:25 Strain of rotator cuff of shoulder 630018379 S46.011D Health Concerns Section Related Observation LastModified by Organization Detai ls LastModified Time None Recorded Concern Status LastModified by Organization Details LastModified Time None Recorded Advance Directives Directive None Recorded Payers Encounter Date Sequence Insurance Name Policy Number Policy Murphy Covered Member ID Murphy Member ID Guarantor Name 12/26/2023 1 [facility] [place] [id number] Courtney L Washut [id number] Courtney Washut 03/23/2024 1 [place] [facility] ([facility] [place] [facility] [id number] Courtney L Washut [id number] Courtney Washut 04/16/2024 1 [facility] [facility] [facility] [id number] Courtney L Washut [id number] Courtney Washut 06/25/2024 1 [facility] [facility] ([facility] [place] [id number] Courtney L Washut [id number] Courtney Washut Notes Date Note Type Note Provider Name and Address Organization Details Recorded Time 12/26/2023 text/html Courtney comes in today for her right shoulder. June 24 she had a fall on a dock. She did 6 weeks of physical therapy without improvement and then she had an MRI done. She brings that for review today. She notes she is not better. And continues to have pain. Allergy to latex. Anxiety hypothyroidism. On exam she demonstrates 116 elevation pain in the overhead positive impingement test pain with abduction positive drop arm she is neurovascular is intact she is not stiff on exam. Review of her MRI shows an os acromiale's and essentially full-thickness cuff tear and impingement. Plan we discussed options for care she would like surgical intervention which would be a right shoulder scope debridement decompression and a cuff repair. That will be in May. And for now she would like cortisone shot and I will have that done under ultrasound JOHN LEE MD [address] [place] [address], [phone], [facility] 12/27/2023 08:37:53 03/23/2024 text/html Courtney presents today for her first postop visit status post right shoulder rotator cuff repair on March 11, 2024. She notes she is doing well. On exam, portals are healing well without evidence of infection, there is no erythema, no drainage. Sutures are removed today. Normal elbow, wrist and hand motion. Neurovascular intact. We discussed post op care. We reviewed the surgery. Physical therapy can start next week, one - two times per week. Sling is to be worn at all times including bedtime, but should be removed multiple times a day, typically meals and showers are a good time to do this. Ice and anti-inflammatories are recommended for pain. No lifting or overhead activities at this time. Follow up is [address] Lee. HARRISON MAX [address] [place] [address], [phone], [facility] 03/23/2024 22:19:58 04/16/2024 text/html Courtney is doing well postoperatively. No major issues here. We are going to discontinue her sling. Continue physical therapy. Back in 2 months via TeleHealth. JOHN LEE MD [address] [place] [address], [phone], [facility] 04/17/2024 08:11:09 06/25/2024 text/html Courtney is reach ed via telehealth. This visit was conducted as a real time interactive [ ] TeleHealth visit conducted via [ ] The patient was identified by name and date of and consented to this TeleHealth visit. The patient was at their home in [place] and I was at my [ ]. Participants of the telehealth visit included myself and the patient [ ]. The patient was last seen for an office visit on [ ]. This visit was done over the course of [ ] minutes including record review She is making good progress 4 months out regaining motion and strength in the shoulder. She wants to return to work, which is fine, but she will need to take breaks as necessary. Recheck in 2 months. JOHN LEE MD [address] [place] [address], [phone], [facility] 06/26/2024 08:32:24 OBGyn Episode No OBEpisode recorded.
--- OUTSIDE RECORDS SUMMARY | 2024-09-02 14:00 | XMS_ITS | Continuity of Care Document ---
Author Organization [facility], Telehealth Address [address] [place] [phone] Care Team Providers Care Tour Agent Name Role Phone YOU BLOUNT Primary Care Provide r Assessment No assessment recorded. Plan of Treatment Reminders Order Date Submit Date Provider Last Modified By Organization Details Last Modified Time Details Appointments Establish ed 2024 12:10P M NEY WINTER MD Not available Not available Not available Lab None recorded. Referral None recorded. Procedures None recorded. Surgeries None recorded. Imaging None recorded. Medication Orders None recorded. Patient TargetsNo targets recorded. Patient InstructionsNo instructions recorded. Reason for Referral None Reported. Problems Name Problem SNOMED Code Status Onset Date Resolution Date Notes Provider Name and Address Organization Details Recorded Time Strain of rotator cuff of shoulder 129516518 Active 024 Albina Garett [facility] 4 12:38:23 Problem Notes None recorded. Procedures Surgical History Date Name Laterality Status Provider Name and Address Organization Details Recorded Time 4 Orthopaedic Surgery completed Ion Chang [facility] 04/16/2024 13:35:33 2 Other completed Kymberly Kaur [facility] 12/26/2023 15:00:31 0 Other completed Ly Nixon [facility] 03/23/2024 11:23:00 Imaging Results None recorded. Procedure Notes None recorded. Medical Equipment None Reported. Allergies Allergen ID Allergen Name Allergen Category Reaction Reaction Severity Criticality Documentation Date Start Date Code Code System Note Provider Name and Address Organization Details Recorded Time 20360117 latex environme nt,medica tion Not available Not available Not available 12/26/2023 98853 91 RxNorm Kymberly bartlett [facility] 14:59:36 Medications Name [...] Not Available Vitals Date Recorded Body height Provider Name an d Address Organization Details Last Updated DateTime 06/25/2024 162.56 cm Lobo Dixon [facility] 06/25/2024 11:07:41 Social History Question Answer Notes LastModified by Organizat ion Details LastModified Time Tobacco Smoking Status Never Smoker Kymberly bartlett [facility] 12/26/2023 14:56:56 What [...] Asthma / Shortness of Breath / Sleep Senior Controls Engineer ea (please specify) N Gynecological HistoryNo gynecological history recorded. Obstetrics History GPAL:G 0 P 0 0 0 0 Past Encounters Encounter ID Performer Location Encounter Start Date Encounter Closed Date Diagnosis/Indication Diagnosis SNOMED-CT Code Diagnosis ICD10 Code [id number] NEY WINTER MD [facility] [address] [address] 06/25/2024 11:07:09 06/25/2024 17:40:25 Strain of rotator cuff of shoulder 399271198 S46.011D Health Concerns Section Related Observation LastModified by Organization Detai ls LastModified Time None Recorded Concern Status LastModified by Organization Details LastModified Time None Recorded Payers Encounter Date Sequence Insurance Name Policy Number Policy Murphy Covered Member ID Murphy Member ID Guarantor Name 06/25/2024 1 [employer] [facility] [place] [place] [id number] Courtney Aburto [id number] Courtney Aburto Notes Date Note Type Note Provider Name and Address Organization Details Recorded Time 06/25/2024 text/html Courtney is reach ed via telehealth. This visit was conducted as a real time interactive [ ] TeleHealth visit conducted via [ ] The patient was identified by name and date of and consented to this TeleHealth visit. The patient was at their home in [place] and I was at my [ ]. [...] breaks as necessary. Recheck in 2 months. NEY WINTER MD [address] [place] [address], [phone], [facility] 06/26/2024 08:32:24 OBGyn Episode No OBEpisode recorded.
[2024-09-02 14:18] VITALS: BP 117/68; PULSE 64; TEMP 36.3; O2SAT 99; BMI 32.4
== END 2024-09-02 15:05 | disposition home or self-care (01) ==
PROVIDERS: PCP Family Medicine; Visit Provider Physician Assistant Surgical
DX: E66.811 Obesity, class 1 (principal); E66.9 Obesity, unspecified; Z68.32 Body mass index [BMI] 32.0-32.9, adult; Z98.84 Bariatric surgery status
CPT/HCPCS: 99214

== ENCOUNTER → 2024-09-02 13:58 | Outpatient (BNVA) | payer BC, SELFPAY | PROVIDERS: PCP Family Medicine; Visit Provider Physician Assistant Surgical ==

== ENCOUNTER 2025-05-14 09:38 | Outpatient (AMB) | payer BC, SELFPAY ==
--- NOTE | 2025-05-14 09:44 | A.OFFVIS_ITS ---
VS Expanded 05/14/25 09:56 BP 110/78 Blood Pressure Location Rt brachial Blood Pressure Position Sitting Pulse 72 Pulse Source Pulse Oximeter Temp 96.1 F L Temperature Source Temporal Artery Scan Pulse Oximetry 99 Oxygen Delivery Method Room Air Height 5 ft 4.5 in Weight 202 lb 3.2 oz BMI 34.2 Body Fat % 40.2 Body Fat Mass 81.4 Fat Free Mass 120.8 Visceral Fat Rating 9.0 Body Water % 42.6 Body Water Mass 86.2 Muscle Mass/Score 114.6 Basal Metabolic Rate/Score 1,671 Intake Visit Reasons: OV PO LSG 09/22/19 Allergies latex (LATEX) Allergy (Intermediate, Verified 05/14/25 09:46) MILD ITCHING wellbutrin Allergy (Unknown, Uncoded 08/30/21 08:04) anxiety extreme HPI Comments Details: Patient is a 43-year-old female who returns to the office today in follow-up. She is approximately 3 years 11 months post sleeve gastrectomy performed on 09/22/[address] Davidson. She also had a panniculectomy performed by Dr. Puckett on 08/08/2021. She was last seen in the office in August 2024 with a weight of 191.8 lb and a BMI of 32.4. She was given information regarding the right BMI lisha and encouraged to create a meal plan and begin exercising more regularly. I had ordered postop labs but she did not get them done. Weight today is 202.2 lb with a BMI of 34.2. Since last visit she states that she has resumed her passion for rowing since recovering from shoulder surgery. She reports trying to eat the right things and have smaller portions but does find that she is snacking. Meal plan: nothing structured drinking 50-60 oz water daily Exercise plan: [place] the river 3 [place] per week 1 hour walking outdoors another 2 mi. 2 x per week walking dog 1 mi daily rowing machine and elliptical machine at home [facility] Medical History Postgastrectomy malabsorption COVID-19 vaccine series completed Intestinal malabsorption following gastrectomy [place] Hypothyroidism Anemia RHETT (obstructive sleep apnea) Pulmonary hypertension Obesity (BMI 30-39.9) Surgical History Hx of rotator cuff surgery S/P laparoscopic sleeve gastrectomy S/P bronchoscopy S/P cardiac cath Family History Mother No problems noted. Father No problems noted. Brother No problems noted. Social History Are you a primary healthcare financial analyst to a significant other at home: No Do you presently have visiting nurse or other home services: No Alcohol intake: current Alcohol intake frequency: holidays/special occasions only Patient Tobacco Use Status: Never used Tobacco service: No Current occupational status: employed Physical Exam Const General: healthy appearing and no acute distress Resp Effort & Inspection: normal respiratory effort Auscultation: clear to auscultation bilaterally Cardio Rate: regular rate Rhythm: regular rhythm GI Auscultation: normal bowel sounds Extrem General: Yes normal to inspection Assessment & Plan Assessment & Plan (1) S/P laparoscopic sleeve gastrectomy: Comment: DOS 09/22/19, Dr. Peterson Code(s): Z98.84 - Bariatric surgery status Category: Surgical Plan: Patient again given information regarding right BMI lisha. encouraged to create and following meal plan. Encouraged to utilize her elliptical machine at home, 4 days a week, 400 calories per session. Continue rowing on the river as she has been doing. Reminded to get labs done that were ordered. Return to clinic as scheduled
[2025-05-14 09:56] VITALS: BP 110/78; PULSE 72; TEMP 35.6; O2SAT 99; BMI 34.2
--- OUTSIDE RECORDS SUMMARY | 2025-05-14 10:25 | XMS_ITS | Encounter Summary ---
Author Organization [facility] Address [address] [place] [address] Phone Care Team Providers Care Hot Plate Press Operator Name Role Phone Robinson Mora MD Primary Care Prov ider Silas Puckett MD Unavailable [phone] Encounter Details Date Type Department Care Team (Late st Contact Info) Description 01/08/2018 Procedure Pass [facility], Ct Scan - [address] [id number] Social History Tobacco Use Types Packs/Day Years Used Date Smoking Tobacco: Never Smokeless Tobacco: Never Alcohol Use Standard Drinks/Week Comments Yes 1 (1 standard drink = 0.6 oz pur e alcohol) Comments Unknown Sex and Gender Information Value Date Recorded Sex Assigned at Female 11/03/2017 2:49 PM EST Legal Sex Female 9:21 PM EDT Gender Identity Female 11/03/2017 2:49 PM EST Sexual Orientation Straight 11/03/2017 2: 49 PM EST documented as of this encounter Plan of Treatment Not on file documented as of this encounter Visit Diagnoses Not on filedocumented in this encounter Additional Health Concerns Assessment Noted Time PHQ-2 Depression Total Score: 0 12/27/19 18 1:04 PM EDT documented as of this encounter Care Teams Hot Plate Press Operator Relationship Specialty Start Date End Date Robinson Mora MD [address] [place] [phone] [email or web address] PCP - General 07/02/17 Silas Puckett MD [address] [place] [address] [place] [address] Surgeon Bariatrics 07/27/21 documented as of this encounter Additional Source Comments The information contained in this document represents components of the legal health record. It is not the complete legal health record.[facility]
--- OUTSIDE RECORDS SUMMARY | 2025-05-14 10:25 | XMS_ITS | Encounter Summary ---
Author Organization [facility] Address [address] [place] [address] Phone Care Team Providers Care Disc Pad Knockout Worker Name Role Phone Robinson Mora MD Primary Care Prov ider Silas Puckett MD Unavailable Reason for Referral * MRI/CAT Scan - Closed Specialty Diagnoses / Procedures Referred By Dorie sanders Referred To Contact Radiology Diagnoses Right shoulder pain, unspecified chronicity Procedures MRI Shoulder Arthrogram (Right) CHG MRI, JOINT UPPER EXTREM W/CONTRAST CHG MRI, JOINT UPPER EXTREM CHG MRI, JOINT UPPER EXTREM COMBO Ernesto De León MD [address] [place] [address] Phone: tel: fax: [email or web address] Referral ID Status Reason Start Date Expiration Date Visits Re quested Visits Authorized [id number] Closed 09/25/2023 11/23/2023 1 1 * Outpatient Procedure - Closed Specialty Diagnoses / Procedures Referred By Dorie sanders Referred To Contact Radiology Diagnoses Right shoulder pain, unspecified chronicity Procedures FL Shoulder Arthrogram (Right) Ernesto De León MD [address] [place] [address] Phone: tel: fax: [email or web address] Referral ID Status Reason Start Date Expiration Date Visits Re quested Visits Authorized [id number] Closed 09/30/2023 1 1 Encounter Details Date Type Department Care Team (Latest Contact Info) Description 09/30/2023 Transcribe Orders Virtual Department [address] [place] [phone] Ernesto De León MD [address] [place] [phone] [email or web address] Right shoulder pain, unspecified chronicity (Primary Dx) Social History Tobacco Use Types Packs/Day Years Used Date Smoking Tobacco: Never Smokeless Tobacco: Never Alcohol Use Standard Drinks/Week Comments Yes 1 (1 standard drink = 0.6 oz pur e alcohol) Education Answer Date Recorded Are you interested in more education? Not on niyah e 01/11/2023 Are you concerned about learning? Not on file 01/11/2023 No 01/11/2023 No 01/11/2023 Digital Access Answer Date Recorded No 02/11/2023 No 02/11/2023 Reliable internet access at home? Not on file 02/11/2023 Device with a working camera? Not on file Comments No Sex and Gender Information Value Date Recorded Sex Assigned at Female 11/03/2017 2:49 PM EST Legal Sex Female 9:21 PM EDT Gender Identity Female 11/03/2017 2:49 PM EST Sexual Orientation Straight 11/03/2017 2: 49 PM EST documented as of this encounter Plan of Treatment Not on file documented as of this encounter Results * MRI Shoulder Arthrogram (Right) (10/31/2023 4:04 PM EST) Anatomical Region Laterality Modality Shoulder Right Magnetic Resonan ce 11/02/2023 1:57 AM EST Impressions 11/02/2023 11:15 PM EST Supraspinatus and infraspinatus tendinopathy with moderate to high-grade articular surface tear involving the mid and posterior third of the supraspinatus and anterior third of the infraspinatus and affecting greater than 75% of the tendon thickness. Some bursal surface fibers remain intact as there is no contrast in the subacromial/subdeltoid bursa. Signal irregularity of the superior and posterior superior labrum, suspicious for nondisplaced tear. Subscapularis tendinopathy with low-grade insertional tearing and intra- articular biceps tendinopathy. Os acromiale. Narrative 11/02/2023 11:15 PM EST MRI SHOULDER ARTHROGRAM (RIGHT) REQUESTED INDICATION: Outside Radiology Order; RIGHT SHOULDER PAIN TECHNIQUE: MRI SHOULDER ARTHROGRAM (RIGHT) COMPARISON: Fluoroscopic arthrogram 10/31/2023 FINDINGS: CORACOACROMIAL ARCH: Os acromiale. No degenerative change of the acromioclavicular joint. No subacromial-subdeltoid bursal fluid. ROTATOR CUFF: Supraspinatus and infraspinatus tendinopathy with moderate to high-grade articular surface tear involving the mid and posterior third of the supraspinatus and the anterior third of the infraspinatus tendons affecting greater than 75% of the tendon thickness (5:12, 6:12, 7:17). Subscapularis tendinopathy with low-grade insertional tearing. Teres minor tendon intact. No muscle atrophy. GLENOID LABRUM AND BICEPS TENDON: Signal irregularity of the superior and posterior superior labrum (3:7-9). Biceps tendon in the bicipital groove with intra- articular tendinopathy. BONE: No fracture, osteonecrosis, or focal lesion. GLENOHUMERAL JOINT: Intra-articular contrast. No joint effusion, synovitis, or capsulitis. Procedure Note Karmen Hickey MD - 11/02/2023 MRI SHOULDER ARTHROGRAM (RIGHT) REQUESTED INDICATION: Outside Radiology Order; RIGHT SHOULDER PAIN TECHNIQUE: MRI SHOULDER ARTHROGRAM (RIGHT) COMPARISON: Fluoroscopic arthrogram 10/31/2023 FINDINGS: CORACOACROMIAL ARCH: Os acromiale. No degenerative change of theacromioclavicular joint. No subacromial-subdeltoid bursal fluid. ROTATOR CUFF: Supraspinatus and infraspinatus tendinopathy with moderateto high- grade articular surface tear involving the mid and posterior thirdof the supraspinatus and the anterior third of the infraspinatus tendonsaffecting greater than 75% of the tendon thickness (5:12, 6:12, 7:17).Subscapularis tendinopathy with low-grade insertional tearing. Teres minortendon intact. No muscle atrophy. GLENOID LABRUM AND BICEPS TENDON: Signal irregularity of the superior andposterior superior labrum (3:7-9). Biceps tendon in the bicipital groovewith intra- articular tendinopathy. BONE: No fracture, osteonecrosis, or focal lesion. GLENOHUMERAL JOINT: Intra-articular contrast. No joint effusion,synovitis, or capsulitis. IMPRESSION: Supraspinatus and infraspinatus tendinopathy with moderate to high- gradearticular surface tear involving the mid and posterior third of thesupraspinatus and anterior third of the infraspinatus and affectinggreater than 75% of the tendon thickness. Some bursal surface fibersremain intact as there is no contrast in the subacromial/subdeltoidbursa. Signal irregularity of the superior and posterior superior labrum,suspicious for nondisplaced tear. Subscapularis tendinopathy with low-grade insertional tearing andintra-articular biceps tendinopathy. Os acromiale. us Ernesto De León MD IMG MR EXTREMITY Final Resul t * FL Shoulder Arthrogram (Right) (10/31/2023 2:15 PM EST) Anatomical Region Laterality Modality Shoulder Right Computed Radiogr aphy 10/31/2023 3:05 PM EST Impressions 10/31/2023 5:41 PM EST Fluoroscopically guided right glenohumeral joint arthrogram. MRI will be acquired and dictated separately. ATTESTATION: I, Amirah Atwood as teaching physician, have reviewed the images for this case and if necessary edited the report originally created by Deyvi Del Angel. Narrative 10/31/2023 5:41 PM EST FL SHOULDER ARTHROGRAM (RIGHT) OPERATORS: Deyvi Del Angel SUPERVISING PHYSICIAN: Amirah Atwood CONSENT: The patient was informed of the nature of the proposed procedure. The purposes, alternatives, risks, and benefits were explained and discussed. All questions were answered and written consent was obtained. A time-out was performed prior to initiation of the procedure to reconfirm the patient's name, date of , and site of procedure. TECHNIQUE: The MR solution was made by mixing normal saline 100 mL with Gadolinium 0.8 mL. Using fluoroscopic guidance, sterile technique and local Lidocaine anesthesia, a 3.5 inch 22 gauge needle was inserted percutaneously into the right glenohumeral joint. Injection of approximately 1 cc of Omnipaque 240 confirmed intra-articular position. Approximately 12 mL of contrast solution was then injected. FINDINGS: Contrast appears intra-articular. Procedure Note Amirah Atwood MD - 10/31/2023 FL SHOULDER ARTHROGRAM (RIGHT) OPERATORS: Deyvi Del Angel SUPERVISING PHYSICIAN: Amirah Atwood CONSENT: The patient was informed of the nature of the proposed procedure. Thepurposes, alternatives, risks, and benefits were explained and discussed.All questions were answered and written consent was obtained. A time-out was performed prior to initiation of the procedure to reconfirm thepatient's name, date of , and site of procedure. TECHNIQUE: The MR solution was made by mixing normal saline 100 mL with Gadolinium0.8 mL. Using fluoroscopic guidance, sterile technique and local Lidocaineanesthesia, a 3.5 inch 22 gauge needle was inserted percutaneously intothe right glenohumeral joint. Injection of approximately 1 cc of [id number] confirmed intra-articular position. Approximately 12 mL of contrastsolution was then injected. FINDINGS: Contrast appears intra-articular. IMPRESSION: Fluoroscopically guided right glenohumeral joint arthrogram. MRI will beacquired and dictated separately. ATTESTATION: I, Amirah Atwood as teaching physician, have reviewed theimages for this case and if necessary edited the report originally createdby Deyvi Del Angel. us Ernesto De León MD IMG IR MSK Final Result documented in this encounter Visit Diagnoses Diagnosis Right shoulder pain, unspecified chronicity- Primary Right shoulder pain, unspecified chronicity Right shoulder pain, unspecified chronicity documented in this encounter Additional Health Concerns Assessment Noted Time PHQ-2 Depression Total Score: 0 08/03/20 20 3:36 PM EST documented as of this encounter Care Teams Disc Pad Knockout Worker Relationship Specialty Start Date End Date Robinson Mora MD [address] [place] [phone] [email or web address] PCP - General 07/02/17 Silas Puckett MD [address] [place] [address] [place] [address] Surgeon Bariatrics 07/27/21 documented as of this encounter Additional Source Comments The information contained in this document represents components of the legal health record. It is not the complete legal health record.[facility]
--- OUTSIDE RECORDS SUMMARY | 2025-05-14 10:25 | XMS_ITS | Encounter Summary ---
Author Organization [facility] Address [address] [place] [address] Phone Care Team Providers Care Milieu Therapist Name Role Phone Robinson Mora MD Primary Care Prov ider Silas Puckett MD Unavailable Encounter Details Date Type Department Care Team (Late st Contact Info) Description 09/17/2017 Procedure Pass [facility] Endoscopy Admitting Dept Virtual Department [address] [place] [address] Social History Tobacco Use Types Packs/Day Years Used Date Smoking Tobacco: Never Smokeless Tobacco: Never Alcohol Use Standard Drinks/Week Comments Yes 0 (1 standard drink = 0.6 oz pur e alcohol) twice a month Comments Unknown Sex and Gender Information Value Date Recorded Sex Assigned at Female 11/03/2017 2:49 PM EST Legal Sex Female 9:21 PM EDT Gender Identity Female 11/03/2017 2:49 PM EST Sexual Orientation Straight 11/03/2017 2: 49 PM EST documented as of this encounter Plan of Treatment Not on file documented as of this encounter Visit Diagnoses Not on filedocumented in this encounter Care Teams Milieu Therapist Relationship Specialty Start Date End Date Robinson Mora MD [address] [place] [phone] [email or web address] PCP - General 10/17/17 Silas Puckett MD [address] [place] [address] [place] [address] Surgeon Bariatrics 07/27/21 documented as of this encounter Additional Source Comments The information contained in this document represents components of the legal health record. It is not the complete legal health record.[facility]
--- OUTSIDE RECORDS SUMMARY | 2025-05-14 10:25 | XMS_ITS | Encounter Summary ---
Author Organization [facility] Address [address] [place] [phone] Phone Care Team Providers Care Drill Sharpener Name Role Phone Robinson Mora MD Primary Care Prov ider Silas Puckett MD Unavailable [phone] Encounter Details Date Type Department Care Team (Late st Contact Info) Description 09/19/2017 Procedure Pass [facility] Endoscopy Admitting Dept Virtual Department [address] [place] [address] Social History Tobacco Use Types Packs/Day Years [...] on filedocumented in this encounter Care Teams Drill Sharpener Relationship Specialty Start Date End Date Robinson Mora MD [address] [place] [phone] [email or web address] PCP - General 10/17/17 Silas Puckett MD [address] [place] [address] [place] [address] Surgeon Bariatrics 07/27/21 documented as of this encounter Additional Source Comments The information contained in this document represents components of the legal health record. It is not the complete legal health record.[facility]
--- OUTSIDE RECORDS SUMMARY | 2025-05-14 10:25 | XMS_ITS | Encounter Summary ---
Author Organization [facility] Address [address] [place] [address] Phone Care Team Providers Care Pigment Processor Name Role Phone Robinson Mora MD Primary Care Prov ider Silas Puckett MD Unavailable [phone] Encounter Details Date Type Department Care Team (Late st Contact Info) Description 08/30/2017 Procedure Pass [facility], Ct Scan - [address] [address] Social History Tobacco Use Types Packs/Day Years [...] on filedocumented in this encounter Care Teams Pigment Processor Relationship Specialty Start Date End Date Robinson Mora MD [address] [place] [phone] [email or web address] PCP - General 07/02/17 Silas Puckett MD [address] [place] [address] [place] [address] Surgeon Bariatrics 07/27/21 documented as of this encounter Additional Source Comments The information contained in this document represents components of the legal health record. It is not the complete legal health record.[facility]
--- OUTSIDE RECORDS SUMMARY | 2025-05-14 10:25 | XMS_ITS | Encounter Summary ---
Author Organization [facility] Address [address] [place] [address] Phone Care Team Providers Care Mechanic/Welder Name Role Phone Robinson Mora MD Primary Care Prov ider Silas Puckett MD Unavailable Encounter Details Date Type Department Care Team (Late st Contact Info) Description 09/19/2017 Procedure Pass [facility] Endoscopy Admitting Dept Virtual Department [address] [place] [address] Social History Tobacco Use Types Packs/Day Years [...] on filedocumented in this encounter Care Teams Mechanic/Welder Relationship Specialty Start Date End Date Robinson Mora MD [address] [place] [phone] [email or web address] PCP - General 10/17/17 Silas Puckett MD [address] [place] [address] [place] [address] Surgeon Bariatrics 07/27/21 documented as of this encounter Additional Source Comments The information contained in this document represents components of the legal health record. It is not the complete legal health record.[facility]
--- OUTSIDE RECORDS SUMMARY | 2025-05-14 10:25 | XMS_ITS | Encounter Summary ---
Author Organization [facility] Address [address] [place] [address] Phone Care Team Providers Care Medical Numerical Control Operator Name Role Phone Robinson Mora MD Primary Care Prov ider Silas Puckett MD Unavailable [phone] Encounter Details Date Type Department Care Team (Late st Contact Info) Description 04/20/2021 Ancillary Orders Virtual Department [address] [place] [address] Robinson Mora MD [address] [place] [address] [email or web address] Breast screening Social History Tobacco Use Types Packs/Day Years Used Date Smoking Tobacco: Never Smokeless Tobacco: Never Alcohol Use Standard Drinks/Week Comments Yes 1 (1 standard drink = 0.6 oz pur e alcohol) Comments No Sex and Gender Information Value Date Recorded Sex Assigned at Female 11/03/2017 2:49 PM EST Legal Sex Female 9:21 PM EDT Gender Identity Female 11/03/2017 2:49 PM EST Sexual Orientation Straight 11/03/2017 2: 49 PM EST documented as of this encounter Plan of Treatment Not on file documented as of this encounter Results * (ABNORMAL) BI MAMMOGRAM SCREENING WITH TOMOSYNTHESIS WITH CAD (BILATERAL) (05/04/2021 8:29 AM EDT) Anatomical Region Laterality Modality Breast Left, Breast Right, Breast Bilateral Bila teral Mammography 05/04/2021 9:21 AM EDT Impressions 05/04/2021 9:29 AM EDT RIGHT BREAST: Negative, no evidence of malignancy. Normal interval follow-up is recommended in 12 months. LEFT BREAST: 0.5 cm asymmetry in the lateral breast at 9 cm from the nipple. Patient will be called back for additional imaging including full field 90 degrees and spot compression in the CC view. If the mammographic finding persists, followed by targeted ultrasound. Bi-RADS: BI-RADS CATEGORY: 0 - Incomplete. Need additional imaging evaluation. DENSITY: The breast tissue is heterogeneously dense, which could obscure a lesion on mammography. RIGHT RECOMMENDATION DUE DATE: 12 Months Recommendation: Right Mammography Screening LEFT RECOMMENDATION DUE DATE: 1 Month Recommendation: Left Additional Imaging Narrative 05/04/2021 9:29 AM EDT STUDY: Bilateral screening mammography with tomosynthesis and CAD TECHNIQUE: Bilateral full-field digital screening mammography is obtained and read in conjunction with computer-aided detection. Tomosynthesis as well as 2-D C view imaging were obtained. COMPARISON: None. This is a baseline study. BREAST COMPOSITION: The breast tissue is heterogeneously dense, which may obscure small masses. RIGHT BREAST: No significant masses, suspicious calcifications or other abnormalities are seen. LEFT BREAST: There is an approximately 0.5 cm asymmetry in the lateral breast at 9 cm from the nipple on the CC view (best seen on the tomosynthesis CC ), without definite correlate on the MLO view. No suspicious calcifications are seen. Robinson Bravo MD IMG MG EXAMS Fi nal Result documented in this encounter Visit Diagnoses Diagnosis Breast screening Breast screening, unspecified Breast screening Breast screening, unspecified documented in this encounter Additional Health Concerns Assessment Noted Time PHQ-2 Depression Total Score: 0 08/03/ 20 3:36 PM EST documented as of this encounter Care Teams Medical Numerical Control Operator Relationship Specialty Start Date End Date Robinson Mora MD [address] [place] [phone] [email or web address] PCP - General 07/02/17 Silas Puckett MD [address] [place] [address] Dr Camacho, [place] [address] Surgeon Bariatrics 07/27/21 documented as of this encounter Additional Source Comments The information contained in this document represents components of the legal health record. It is not the complete legal health record.[facility]
--- OUTSIDE RECORDS SUMMARY | 2025-05-14 10:25 | XMS_ITS | Encounter Summary ---
Author Organization [facility] Address [address] [place] [address] Phone Care Team Providers Care Vascular Technologist Sonographer Name Role Phone Robinson Mora MD Primary Care Prov ider Silas Puckett MD Unavailable [phone] Encounter Details Date Type Department Care Team (Late st Contact Info) Description 11/01/2017 Transcribe Orders [facility] [address] [place] [address] Amna Espinoza MD [address] [place] [address] [id number] [email or web address] Social History Tobacco Use Types Packs/Day Years [...] on filedocumented in this encounter Care Teams Vascular Technologist Sonographer Relationship Specialty Start Date End Date Robinson Mora MD [address] [place] [address] [email or web address] PCP - General 07/02/17 Silas Puckett MD [address] [place] [address] [place] [address] Surgeon Bariatrics 07/27/21 documented as of this encounter Additional Source Comments The information contained in this document represents components of the legal health record. It is not the complete legal health record.[facility]
--- OUTSIDE RECORDS SUMMARY | 2025-05-14 10:25 | XMS_ITS | Encounter Summary ---
Author Organization [facility] Address [address] [place] [phone] Phone Care Team Providers Care Cylinder Inspector Name Role Phone Robinson Mora MD Primary Care Prov ider Silas Puckett MD Unavailable [phone] Encounter Details Date Type Department Care Team (Late st Contact Info) Description 09/30/2023 Procedure Pass [facility], [address] [address] Social History Tobacco Use Types Packs/Day Years [...] documented as of this encounter Care Teams Cylinder Inspector Relationship Specialty Start Date End Date Robinson Mora MD [address] [place] [phone] [email or web address] PCP - General 07/02/17 Silas Puckett MD [address] [place] [address] [place] [address] Surgeon Bariatrics 07/27/21 documented as of this encounter Additional Source Comments The information contained in this document represents components of the legal health record. It is not the complete legal health record.[facility]
--- OUTSIDE RECORDS SUMMARY | 2025-05-14 10:25 | XMS_ITS | Encounter Summary ---
Author Organization [facility] Address [address] [place] [phone] Phone Care Team Providers Care Conduit Cleaner Name Role Phone Robinson Mora MD Primary Care Prov ider Silas Puckett MD Unavailable [phone] Encounter Details Date Type Department Care Team (Late st Contact Info) Description 04/20/2021 Procedure Pass [facility], [address] [id number] Social History Tobacco Use Types Packs/Day Years [...] documented as of this encounter Care Teams Conduit Cleaner Relationship Specialty Start Date End Date Robinson Mora MD [address] [place] [phone] [email or web address] PCP - General 07/02/17 Silas Puckett MD [address] [place] [address] [place] [address] Surgeon Bariatrics 07/27/21 documented as of this encounter Additional Source Comments The information contained in this document represents components of the legal health record. It is not the complete legal health record.[facility]
--- OUTSIDE RECORDS SUMMARY | 2025-05-14 10:25 | XMS_ITS | Encounter Summary ---
Author Organization [facility] Address [address] [place] [address] Phone Care Team Providers Care Dial Maker Name Role Phone Robinson Mora MD Primary Care Prov ider Silas Puckett MD Unavailable [phone] Encounter Details Date Type Department Care Team (Late st Contact Info) Description 11/05/2017 Procedure Pass [facility] [address] [place] [address] Social History Tobacco Use Types Packs/Day Years [...] on filedocumented in this encounter Care Teams Dial Maker Relationship Specialty Start Date End Date Robinson Mora MD [address] [place] [address] [email or web address] PCP - General 07/02/17 Silas Puckett MD [address] [place] [address] [place] [address] Surgeon Bariatrics 07/27/21 documented as of this encounter Additional Source Comments The information contained in this document represents components of the legal health record. It is not the complete legal health record.[facility]
--- OUTSIDE RECORDS SUMMARY | 2025-05-14 10:25 | XMS_ITS | Clinical Summary ---
Author Organization [facility] Address [address] [place] [id number] Phone Care Team Providers Care Woven Blind Loom Tender Name Role Phone Robinson Mora MD Primary Care Prov ider Silas Puckett MD Unavailable [phone] Allergies Active Allergy Reactions Criticality Noted Date Comments Bupropion Hcl Anxiety Low 09/24/2024 Latex Rash Low 02/06/2018 Medications levothyroxine (SYNTHROID, LEVOTHROID) 137 MCG tablet 112 mcg every morning. Active lysine 1,000 mg Tab 1,000 mg daily. Active therapeutic multivitamin tablet Take 1 tablet by mouth daily. Active calcium carb/vitamin D3/vit K1 (CALCIUM SOFT CHEW ORAL) Take by mouth. Active etonogestreL (NEXPLANON) 68 mg Impl Inject 68 mg into the skin Once every 3 years. Active COQ10, LIPOSOMAL UBIQUINOL, ORAL Take 300 mg by mouth. Active FLUoxetine (PROZAC) 40 MG capsule Take 40 mg by mouth daily. Active ferrous sulfate 325 mg (65 mg [place] iron) tablet Take 325 mg by mouth. 5 days a week Active Hospital, Clinic, or Other Facility Administered Medication Ordered Dose Route Frequency Start Date End Date Status etonogestreL (NEXPLANON) subdermal implant 68 mgIndications:Encounter for removal and reinsertion of Nexplanon 68 mg IDrm Every 3 years 09/24/2024 Active Active Problems Problem Noted Date Diagnosed Date Contraceptive management 04/18/2020 Assessment & Plan (04/18/2020 3:26 PM EDT): Contraceptive options, risks and benefits reviewed. Advised patient she has no contraindications to continue combination OCP pill use. At this point patient preferring LARC method. She desires insertion of Nexplanon. Appointment scheduled. Pulmonary arterial hypertension 02/26/2018 Overview (04/18/2020): Letairis medication teratogenic. Pt on contraception. Assessment & Plan (08/03/2020 4:26 PM EST): Ms Napier presents today with continued stable response to ambrisentan 10 mg daily, and normalization of her exercise physiology.. Her exercise capacity has improved remarkably since both starting medication, and losing weight. She will continue the ambrisentan 10 mg once daily and I will see her back in 12 months time at which time we will repeat her submaximal exercise test, and obtain an echocardiogram. If all looks good at that time we will discontinue her ambrisentan. 1. Continue Ambrisentan 10mg daily 2. Follow up in 12-months 3. Echocardiogram at next visit 4. Step exercise test at next visit Assessment & Plan (01/20/2020 3:02 PM EDT): Ms Napier presents today with continued stable response to ambrisentan 10 mg daily. Her exercise capacity has improved since both starting medication, and losing weight. She sounds like she is doing extremely well such that we could consider getting her off pulmonary vasodilator therapy in the future. She will continue the ambrisentan 10 mg once daily and I will see her back in 6 months time at which time we will repeat her submaximal exercise test, and obtain an echocardiogram. 1. Continue Ambrisentan 10mg daily 2. Follow up in 6-months 3. Echocardiogram at next visit 4. Step exercise test at next visit Assessment & Plan (06/10/2019 3:39 PM EDT): Ms Napier presents today with continued stable response to ambrisentan 10 mg daily. Her exercise capacity has improved since starting medication, and has been stable over the past several months. She is back at the gym exercising and working at losing weight. She talked with me at length about the options of bariatric surgery, which I suspect will be extremely helpful for her. I would consider her medically cleared based on her improved WHO functional class, and exercise capacity demonstrated by sub-max exercise testing. I do expect that if she can continue this she will continue to improve without the addition of additional pulmonary vasodilator therapy. Based on the exercise testing we did today in clinic I would continue her current dosing of ambrisentan. She will continue the ambrisentan 10 mg once daily and I will see her back in 6 months time. Assessment & Plan (12/10/2018 12:42 PM EDT): Ms Napier presents today with continued stable response to ambrisentan 10 mg daily. She has mild nasal congestion as a side effect with the medication, but otherwise is tolerating it well. Overall her exercise capacity has improved since starting medication, and has been stable over the past several months. She is back at the gym exercising and working at losing weight. I do expect that if she can continue this she will continue to improve without the addition of additional pulmonary vasodilator therapy. Based on the exercise testing we did today in clinic I would continue her current dosing of ambrisentan, and all of also encouraged her to try to increase her exercise and lose weight. She will continue the ambrisentan 10 mg once daily and I will see her back in 6 months time. Assessment & Plan (05/28/2018 4:04 PM EDT): Ms. Napier returns for follow-up of early pulmonary arterial hypertension. She has had an early response to ambrisentan. I recommended she continue on this medication and we give it another 4-6 months to decide the actual extent of her response. If she comes back at her next visit and feels that it is a limited response, or inadequate response, then we could consider switching her to a phosphodiesterase 5 inhibitor versus adding on a second agent. My preference would be to first switch her to a single agent and see how she does. We did have a discussion about . With her degree of pulmonary vascular disease I would not have any concerns about her being . The one issue now is that she is on an endothelin antagonist which is teratogenic and we would need to switch her to a PDE 5 inhibitor before she started working towards . For now she will continue ambrisentan 10 mg daily, and she will follow-up in 6 months. Assessment & Plan (03/03/2018 12:24 PM EDT): Patient prescribed ambrisentan 5 mg daily which she takes expects will be started by next week. She is due to follow-up with Dr. Castellon in May. Sleep study has also been ordered. I will see her again in 6 months and then can follow yearly so she has a local portainer operator. My questions to Dr. Castellon are whether or not she is in the same risk category for surgical procedures and /labor as someone with pulmonary hypertension at rest. The patient understands that she cannot get due to defects on the ambrisentan but long-term goals for her had included a family. She will discuss with Dr. Castellon at their next visit. Assessment & Plan (02/26/2018 1:58 PM EDT): Based on level III cardiopulmonary exercise test findings there is a well compensated borderline exercise pulmonary hypertension is suggested by a normal peak VO2 and cardiac output, elevated mean pulmonary artery pressure max and borderline elevated PVR max. There is no pulmonary venous hypertension or pulmonary mechanical limit. Systemic O2 extraction is normal. Measuring hemodynamics during upright exercise best simulates the circulatory changes in patients with exertional symptoms. Invasive cardiopulmonary exercise testing (ICPET) allows measurment of simultaneous cardiovascular, respiratory and metabolic functions allowing for differentiation between pulmonary, cardiac or peripheral causes of exercise intolerance. ICPET discriminates the cardiovascular mechanisms that limit exercise capacity, which is crucial in the differential diagnosis between exercise-induced PAH (ei-PAH) and pulmonary hypertension due to LV diastolic or systolic dysfunction. Ei-PAH is defined at peak exercise by a peak mPAP >= 30 mmHg, a peak PCWP < 20 mmHg and a peak PVR >= 120 dyne.s.cm-5 Ei-PAH patients have significantly lower exercise capacity, as measured by VO2max, than normal/detrained patients. The degree of severity of the abnormal central hemodynamics, including a blunted fall in PVR, and an elevated P(A-a)O2 is significantly reduced compared to patients with resting PAH. Because of the progressive nature of PAH, finding an early stage of the disease and initiating treatment at an early phase may prevent progression to severe forms of PAH (Pulmonary Circulation, 2017; 7(9) 854-668). Published data suggest that these patients may represent an early phase of PAH with an abnormal vasoconstriction response, and that treatment can result in normalization of hemodynamics, and improved exercise capacity (Pulm Circ. 2017 Dec-Feb;7(2):531-538). 1. We are recommending initiation of pulmonary vasodilator therapy with ambrisentan 5 mg daily. 2. I'm also recommending she have a repeat sleep evaluation so that it is clear that that is not contributing. 3. She will follow-up in 3 months Acquired hypothyroidism 11/04/2017 Elevated sedimentation rate 10/26/2017 Assessment & Plan (10/28/2017 4:35 PM EST): Unclear as to the cause. Very nonspecific marker. Vasculitis panel is negative. No radiographic evidence of BOOP or clinical evidence of temporal arteritis. Perhaps PMR? Will try a course of steroids. Decreased diffusion capacity 09/27/2017 Assessment & Plan (03/03/2018 12:25 PM EDT): Now discovered to be related to early pulmonary artery hypertension. Would follow yearly. Assessment & Plan (09/27/2017 10:26 AM EST): If all of the below workup is negative will consider RHC. She is in the correct demographic for primary pulmonary hypertension and even the echocardiogram is normal her symptoms are so suggestive. Multiple pulmonary nodules 09/19/2017 Assessment & Plan (03/03/2018 12:27 PM EDT): Pulmonary nodules appear to be stable. I think that she is at low risk for malignancy and had ordered repeat study in order to see if they were located in her dyspnea, for example inflammatory lung disease. Since we have an alternative diagnosis for her dyspnea and she is at low risk for malignancy as a never smoker, I do not think any further follow-up is indicated. Assessment & Plan (01/08/2018 1:43 PM EDT): Six-month follow-up for the multiple pulmonary nodules. These are likely granulomata. However, if they are progressive perhaps it would be a clue to the cause of her symptoms. Assessment & Plan (10/28/2017 4:36 PM EST): Biopsies negative for sarcoidosis. Will consider repeat CT chest in 12 months. Assessment & Plan (09/27/2017 10:15 AM EST): Biopsies negative for sarcoidosis. Consider repeat CT chest in 12 months, or maybe not given low risk depending on clinical status. Assessment & Plan (09/19/2017 8:52 AM EST): Differential diagnosis includes sarcoidosis or foreign body granulomata. Unlikely to be malignancy. Cervical spine disease 09/19/2017 Assessment & Plan (09/19/2017 8:58 AM EST): We'll check MRI of cervical spine. Has already failed 6 months of physical therapy. Shortness of breath 08/30/2017 Assessment & Plan (01/08/2018 1:42 PM EDT): Agree with level III exercise stress test. Further recommendations based on that study. If that remains nondiagnostic would attempt to discontinue all unnecessary medications and get a second opinion about tonsillectomy. Assessment & Plan (12/26/2017 1:44 PM EDT): She presents today with unexplained exertional intolerance that has been ongoing for about 8-9 months. She's had an extensive cardiac and pulmonary evaluation that have been unrevealing. The one notable finding is her borderline decrease in diffusing capacity, and low cardiac filling pressures, which could suggest a form of dysautonomia and preload failure. Exercise intolerance is a common complaint, the cause of which often remains elusive after a comprehensive evaluation. Unrecognized causes of exertional dyspnea include exercise-induced left ventricular diastolic dysfunction and exercise-induced pulmonary hypertension (PH). With regard to the former, nearly half of all patients with congestive heart failure have preserved systolic function. The symptoms of exertional dyspnea in these patients often originate from elevated LV diastolic filling pressure that stems from worsening diastolic dysfunction during exercise. This in turn increases pulmonary capillary pressures and subsequently results in dyspnea. Exercise-induced PH has also emerged as an underappreciated cause of exertional dyspnea. While some patients with exercise-induced PH have LV systolic, diastolic dysfunction, chronic lung disease, or occult pulmonary vascular disease that may contribute to PH. Patients with exercise-induced PH in the absence of other underlying disease processes may also be an early manifestation of idiopathic pulmonary arterial hypertension. The mechanisms mediating isolated exercise-induced PH in these patients at the early stage are largely unknown. Mitochondrial myopathy s include various syndromes with diverse pathophysiologic characteristics that often present with varying signs and symptoms affecting any organ system. The ultimate pathogenesis is a decline in mitochondrial ATP-generating capacity leading to a deficit in energy production, and exercise intolerance. Finally, dysautonomia that results in dysregulation of normal vascular tone can result in alterations in cardiac preload and dyspnea. Level-3 CPET is recommended to define the physiologic contributors to unexplained exertional dyspnea. Once we have the findings of the test we can decide on a treatment plan. Assessment & Plan (11/18/2017 9:52 AM EST): Patient had a normal echocardiogram as well as a normal right and left heart catheterization. She continues to have shortness of breath with exertion as well as fatigue. There is no cardiac cause for this. She should continue to follow up with her PCP and portainer operator to determine other possible noncardiac causes of shortness of breath. She will follow up with us on a PRN basis. Assessment & Plan (10/28/2017 4:38 PM EST): No clinical response to Augmentin. I have referred to Cardiology for RHC. Also due to see ENT to determine if tonsils or even exercise-induced laryngeal obstruction could be contributing. Assessment & Plan (09/27/2017 10:18 AM EST): Negative work-up thus far. Her muscle pain after the procedure is quite unusual. Given those symptoms which I usually see when someone is infected and the multiple normal oropharyngeal pineda cultures we will treat with Augmentin for 2 weeks. Patient advised to use probiotics and [place] to maintain normal L pineda. I have referred her to ENT to evaluate whether upper airway obstruction from her tonsils or maybe even exercise-induced laryngeal obstruction may be at play here. The stock driver also advised her to see ear nose and throat doctor. She does also have extreme fatigue and wakes up in the middle of the night. We'll check an overnight oxygen study while on CPAP. I'm not sure if her primary care physician already perform this but I will do a full rheumatologic workup and check a cortisol. She says her thyroid has been checked. Assessment & Plan (09/19/2017 8:52 AM EST): Still unclear etiology. CT without pulmonary embolism. Suspect VCD or tracheobronchomalacia. Will plan bronchoscopy. Assessment & Plan (08/30/2017 5:07 PM EST): Given the low DLCO, pulmonary embolism is on the differential diagnosis, especially with the syncopal episode. Will check CTPA. If negative will consider airway surveillance with bronchoscopy looking for extrathoracic airway obstruction and possible tracheobronchomalacia (with untreated RHETT). Other things to consider are herpetic tracheobronchitis and then maybe even diaphragmatic weakness with the recent neck injury. If all of this testing is negative, would then refer for RHC to evaluate for pulmonary hypertension. Chest tightness 08/30/2017 Assessment & Plan (08/30/2017 5:09 PM EST): With family history of asthma, would suggest trying the proair for her chest tightness for diagnostic purposes more than anything. Seems unlikely that this is asthma. Will see if I can find the Methacholine challenge test she says she had here. Not available to me at this time. Family History Medical History Relation Comments Asthma Brother Lyme disease Brother Hypertension Father Colon cancer Maternal Grandfather Arthritis Maternal Grandmother Dementia Maternal Grandmother Hydrocephalus Maternal Grandmother Fibromyalgia Mother No Known Problems Paternal Grandfather Breast cancer Paternal Grandmother Relation Status Comments Brother Alive Father Alive Maternal Grandfather Maternal Grandmother Mother Alive Paternal Grandfather Paternal Grandmother Social History Tobacco Use Types Packs/Day Years Used Date Smoking Tobacco: Never Smokeless Tobacco: Never Tobacco Cessation:Counseling Given: No Alcohol Use Standard Drinks/Week Comments Yes 1 [...] Orientation Straight 11/03/2017 2: 49 PM EST Last Filed Vital Signs Vital Sign Reading Time Taken Comments Blood Pressure 124/76 09/24/2024 9:01 AM EST Pulse 71 07/27/2021 12:07 PM EST Temperature 37.3 C (99.2 F) 02/11/2018 1:18 PM EDT Respiratory Rate 14 02/11/2018 1:39 PM EDT Oxygen Saturation 97% 08/03/2020 3:36 PM EST Inhaled Oxygen Concentration 6% 09/19/2017 1 0:06 AM EST Weight 89.8 kg (198 lb) 09/24/2024 9:01 AM EST Height 162.6 cm (5' 4 ) 09/24/2024 9:01 AM EST Body Mass Index 33.99 09/24/2024 9:01 AM EST Plan of Treatment Health Maintenance Due Date Last Done Comments HEPATITIS C SCREENING 1998 HIV ONE-TIME SCREENING (18-65 YEARS) 1998 TSH LEVEL 12/26/2018 12/26/2017, 09/06/2017 SCREENING FOR DIABETES 12/26/2020 12/26/2017 DEPRESSION SCREENING 08/03/2021 08/03/2020 COVID-19 VACCINE ( season) 2024 10/21/2023, 10/05/2022, 07/16/2021, Additional history exists MAMMOGRAM 09/04/2024 09/04/2022, 05/04/2021 Adult Td,Tdap Booster 10/18/2026 10/18/2016 PAP SMEAR 09/21/2027 09/21/2024, 12/02/2023, 10/21/2017 Contraceptive Implant 09/24/2027 09/24/2024 SMOKING STATUS SCREENING (Once After 26 Yrs) Completed 10/31/2023 HEPATITIS A VACCINES Aged Out No long er eligible based on patient's age to complete this topic HIB VACCINES Aged Out No longer eligi ble based on patient's age to complete this topic MENINGOCOCCAL VACCINES (ACWY) Aged Out No longer eligible based on patient's age to complete this topic MENINGOCOCCAL VACCINES (B) Aged Out N o longer eligible based on patient's age to complete this topic PNEUMOCOCCAL VACCINES (0-49 years) Aged Out No longer eligible based on patient's age to complete this topic Medical Devices Implanted Type Area Equity Trader Device Identifier Shelf Expiration Date Model / Serial / Lot Titanium Implant-Mouth Procedures Procedure Name Priority Date/Time Associated Diagnosis Comments PAP TEST Routine 09/21/2024 12:00 AM EST BI MAMMOGRAM SCREENING WITH TOMOSYNTHESIS WITH CAD (BILATERAL) Routine 09/04/2022 3:11 PM EST Breast screening TSH Routine 12/26/2017 1:55 PM EDT Shortness of breath on exertion from Last 3 Months or Most Recently Relevant to Health Maintenance Results * Pap Test (09/21/2024 12:00 AM EST) 09/21/2024 09/22/2024 8:4 0 AM EST Narrative SEE NARRATIVE - 09/25/2024 4:01 [place] [address] Hose Wrapper: Jairo Robles MD COIL STRAPPER Cytology Report FINAL DIAGNOSIS A. PAP SMEAR (THIN PREP) CV: SPECIMEN ADEQUACY: Satisfactory for evaluation; transformation zone present. Limited by inflammation INTERPRETATION: NEGATIVE FOR INTRAEPITHELIAL LESION OR MALIGNANCY. Due to blood, the specimen was reprocessed with 10% Glacial Acetic Acid. This specimen was analyzed by the automated ThinPrep Imaging System ([facility] and manually rescreened by a adult education manager and/or pathologist. Electronically Signed Out By: SYDNIE Rubio(ASCP) SYDNIE Ward(ASCP) The Pap test is a screening test primarily for squamous cancers and precursors and has associated false-negative and false-positive results. New technologies such as liquid-based preparations may decrease but will not eliminate all false-negative results. Regular sampling and follow-up of unexplained clinical signs and symptoms are recommended to minimize false negative results. CLINICAL HISTORY Date of Last Menstrual Period: Not Provided Menstrual History: Unknown Contraceptive History: Other: NEXPLANON Infection History: HPV: TYPE 45, 2022 Other Clinical Conditions: Diagnostic Pap SPECIMEN SOURCE A: PAP SMEAR (THIN PREP) CV Patient Name: VAIBHAV NAPIER : 1980 (Age: 43) Sex: F Institution: [facility] Location: [facility] Date of Collection: 09/21/2024 Date of Reported: 09/25/2024 16:01 Results to: Robinson Bravo us Robinson Bravo MD CYTOLOGY ORDERABLE S Final Result SEE NARRATIVE * BI MAMMOGRAM SCREENING WITH TOMOSYNTHESIS WITH CAD (BILATERAL) (09/04/2022 3:11 PM EST) Anatomical Region Laterality Modality Breast Left, Breast Right, Breast Bilateral Bila teral Mammography 09/09/2022 9:49 AM EST Impressions 09/09/2022 9:53 AM EST BILATERAL BREASTS: Negative, no specific mammographic evidence of malignancy. Normal interval follow-up is recommended in 12 months. BI-RADS: BI-RADS CATEGORY: 1 - Negative. DENSITY: There are scattered fibroglandular densities. Narrative 09/09/2022 9:53 AM EST STUDY: BI MAMMOGRAM SCREENING WITH TOMOSYNTHESIS WITH CAD (BILATERAL) TECHNIQUE: Bilateral full-field digital screening mammography is obtained and read in conjunction with computer-aided detection. Tomosynthesis as well as 2-D C view imaging were obtained. COMPARISON: Left mammogram on May 25, 2021 and May 04, 2021 BREAST COMPOSITION: There are scattered areas of fibroglandular density BILATERAL BREASTS: No significant masses, suspicious calcifications or other abnormalities are seen in either breast. Procedure Note Patricia Field MD - 09/09/2022 STUDY: BI MAMMOGRAM SCREENING WITH TOMOSYNTHESIS WITH CAD (BILATERAL) TECHNIQUE: Bilateral full-field digital screening mammography is obtainedand read in conjunction with computer-aided detection. Tomosynthesis aswell as 2-D C view imaging were obtained. COMPARISON: Left mammogram on May 25, 2021 and May 04, 2021 BREAST COMPOSITION: There are scattered areas of fibroglandulardensity BILATERAL BREASTS: No significant masses, suspicious calcifications orother abnormalities are seen in either breast. IMPRESSION: BILATERAL BREASTS: Negative, no specific mammographic evidence ofmalignancy. Normal interval follow-up is recommended in 12 months. BI-RADS: BI-RADS CATEGORY: 1 - Negative. DENSITY: There are scattered fibroglandular densities. Robinson Bravo MD IMG MG EXAMS Fi nal Result * (ABNORMAL) TSH (12/26/2017 1:55 PM EDT) TSH 0.45(L) 0.50 - 5.70 uIU/mL [facility] 12/26/2017 1:55 PM EDT 12/26/2017 2:35 PM EDT Ludwin Castellon MD, PhD LAB BLOOD ORDERABLES Haley andrade Result Performing Organization Address City/State/[facility] de Phone Number [facility] [address] [place] [phone] from Last 3 Months or Most Recently Relevant to Health Maintenance Insurance [facility] [address] [place] [address] [place] [address] [place] [address] [place] [address] [place] [address] [place] [address] Advance Directives For more information, please contact: [phone] (9AM - 5PM [facility], Saturday-Saturday) Documents on File Type Date Recorded Patient Financial Administration Officer Expl anation Healthcare Proxy 02/18/2018 11:15 AM Signed On 02/11/2018 Care Teams Woven Blind Loom Tender Relationship Specialty Start Date End Date Robinson Mora MD [address] [place] [id number] [email or web address] PCP - General 07/02/17 Silas Puckett MD [address] [place] [address] [place] [address] Surgeon Bariatrics 07/27/21 Additional Source Comments The information contained in this document represents components of the legal health record. It is not the complete legal health record.[facility]
--- OUTSIDE RECORDS SUMMARY | 2025-05-14 10:25 | XMS_ITS | Encounter Summary ---
Author Organization [facility] Address [address] [place] [address] Phone Care Team Providers Care Patient Accounts Clerk Name Role Phone Robinson Mora MD Primary Care Prov ider Silas Puckett MD Unavailable [phone] Encounter Details Date Type Department Care Team (Late st Contact Info) Description 02/11/2018 Procedure Pass [facility] Cardiac Early Morning [address] [place] [address] Social History Tobacco Use Types Packs/Day Years [...] documented as of this encounter Care Teams Patient Accounts Clerk Relationship Specialty Start Date End Date Robinson Mora MD [address] [place] [phone] [email or web address] PCP - General 07/02/17 Silas Puckett MD [address] [place] [address] Dr Camacho, JORDY [address] Surgeon Bariatrics 07/27/21 documented as of this encounter Additional Source Comments The information contained in this document represents components of the legal health record. It is not the complete legal health record.[facility]
--- OUTSIDE RECORDS SUMMARY | 2025-05-14 10:25 | XMS_ITS | Encounter Summary ---
Author Organization [facility] Address [address] [place] [address] Phone Care Team Providers Care Cotton Acreage Measurer Name Role Phone Robinson Mora MD Primary Care Prov ider Silas Puckett MD Unavailable [phone] Encounter Details Date Type Department Care Team (Late st Contact Info) Description 06/22/2022 Transcribe Orders Virtual Department [address] [place] [address] Robinson Mora MD [address] [place], [place] [phone] [email or web address] Breast screening (Primary Dx) Social History Tobacco Use Types [...] documented as of this encounter Results * BI MAMMOGRAM SCREENING WITH TOMOSYNTHESIS WITH [...] in this encounter Visit Diagnoses Diagnosis Breast screening- Primary Breast screening, unspecified Breast screening Breast screening, unspecified documented in this encounter Additional Health Concerns Assessment Noted Time PHQ-2 Depression Total Score: 0 08/03/20 20 3:36 PM EST documented as of this encounter Care Teams Cotton Acreage Measurer Relationship Specialty Start Date End Date Robinson Mora MD [address] [place] [phone] PCP - General 07/02/17 Silas Puckett MD [address] [place] [address] [place] [address] Surgeon Bariatrics 07/27/21 documented as of this encounter Additional Source Comments The information contained in this document represents components of the legal health record. It is not the complete legal health record.[facility]
--- OUTSIDE RECORDS SUMMARY | 2025-05-14 10:25 | XMS_ITS | Encounter Summary ---
Author Organization [facility] Address [address] [place] [address] Phone Care Team Providers Care Flaking Roll Operator Name Role Phone Robinson Mora MD Primary Care Prov ider Silas Puckett MD Unavailable [phone] Encounter Details Date Type Department Care Team (Late st Contact Info) Description 05/04/2021 Procedure Pass [address] [phone] Social History Tobacco Use Types Packs/Day Years [...] documented as of this encounter Care Teams Flaking Roll Operator Relationship Specialty Start Date End Date Robinson Mora MD [address] [place] [phone] [email or web address] PCP - General 07/02/17 Silas Puckett MD [address] [place] [address] [place] [address] Surgeon Bariatrics 07/27/21 documented as of this encounter Additional Source Comments The information contained in this document represents components of the legal health record. It is not the complete legal health record.[facility]
--- OUTSIDE RECORDS SUMMARY | 2025-05-14 10:25 | XMS_ITS | Encounter Summary ---
Author Organization [facility] Address [address] [place] [address] Phone Care Team Providers Care Jewelry Estimator Name Role Phone Robinson Mora MD Primary Care Prov ider Silas Puckett MD Unavailable [phone] Encounter Details Date Type Department Care Team (Late st Contact Info) Description 07/06/[address] [facility] Echocardiography [address] [place] [address] Social History Tobacco Use Types Packs/Day Years [...] documented as of this encounter Care Teams Jewelry Estimator Relationship Specialty Start Date End Date Robinson Mora MD [address] [place] [address] [email or web address] PCP - General 07/02/17 Silas Puckett MD [address] [place] [address] [place] [address] Surgeon Bariatrics 07/27/21 documented as of this encounter Additional Source Comments The information contained in this document represents components of the legal health record. It is not the complete legal health record.[facility]
--- OUTSIDE RECORDS SUMMARY | 2025-05-14 10:25 | XMS_ITS | Encounter Summary ---
Author Organization [facility] Address [address] [place] [address] Phone Care Team Providers Care Inspector Precision Name Role Phone Robinson Mora MD Primary Care Prov ider Silas Puckett MD Unavailable [phone] Encounter Details Date Type Department Care Team (Late st Contact Info) Description 08/03/2020 Procedure Pass [facility] Echocardiography [address] [place] [address] Social History Tobacco Use Types Packs/Day Years [...] documented as of this encounter Care Teams Inspector Precision Relationship Specialty Start Date End Date Robinson Mora MD [address] [place] [address] [email or web address] PCP - General 07/02/17 Silas Puckett MD [address] [place] [address] [place] [address] Surgeon Bariatrics 07/27/21 documented as of this encounter Additional Source Comments The information contained in this document represents components of the legal health record. It is not the complete legal health record.[facility]
--- OUTSIDE RECORDS SUMMARY | 2025-05-14 10:25 | XMS_ITS | Encounter Summary ---
Author Organization [facility] Address [address] [place] [address] Phone Care Team Providers Care Websphere Process Server Developer Name Role Phone Robinson Mora MD Primary Care Prov ider Silas Puckett MD Unavailable Encounter Details Date Type Department Care Team (Late st Contact Info) Description 05/04/2021 Ancillary Orders Virtual Department [address] [place] [address] Robinson Mora MD [address] [place] [address] [email or web address] Abnormal mammogram Social History Tobacco Use Types Packs/Day Years [...] 2:49 PM EST Sexual Orientation Straight 11/03/2017 2 :49 PM EST documented as of this encounter Plan of Treatment Not on file documented as of this encounter Results * BI US BREAST LIMITED (LEFT) (05/25/2021 1:58 PM EDT) Anatomical Region Laterality Modality Breast Left, Breast Bilateral Left Ul trasound 05/25/2021 1:39 PM EDT Narrative 05/25/2021 1:54 PM EDT Refer to the mammogram report. Procedure Note Marky Packer MD - 05/25/2021 Refer to the mammogram report. us Robinson Bravo MD IMG US BREAST Fi nal Result * BI MAMMOGRAM DIAGNOSTIC WITH TOMOSYNTHESIS WITH CAD (LEFT) (05/25/2021 1:13 PM EDT) Anatomical Region Laterality Modality Breast Left Left Mammography 05/25/2021 1:21 PM EDT Impressions 05/25/2021 1:57 PM EDT No mammographic evidence of malignancy. Recommend return to routine annual surveillance. Findings relayed to the patient via the technologist. BI-RADS CATEGORY: 1 - Negative. DENSITY: There are scattered fibroglandular densities. LEFT RECOMMENDATION DUE DATE: 12 Months Left Mammography Screening Narrative 05/25/2021 1:57 PM EDT 40-year-old female who presents for call back mammogram for a left breast asymmetry. Comparison made to previous mammograms. Interpretation made in conjunction with computer-aided detection and tomosynthesis. Left ML and spot compression cc views obtained. The left breast is composed of scattered areas of fibroglandular density. There is no mass or distortion identified in the outer left breast. Left breast ultrasound obtained. No abnormality identified in the left breast. Procedure Note Marky Packer MD - 05/25/2021 40-year-old female who presents for call back mammogram for a left breastasymmetry. Comparison made to previous mammograms. Interpretation madein conjunction with computer-aided detection and tomosynthesis. Left ML and spot compression cc views obtained. The left breast iscomposed of scattered areas of fibroglandular density. There is no mass ordistortion identified in the outer left breast. Left breast ultrasound obtained. No abnormality identified in the leftbreast. IMPRESSION: No mammographic evidence of malignancy. Recommend return to routineannual surveillance. Findings relayed to the patient via thetechnologist. BI-RADS CATEGORY: 1 - Negative. DENSITY: There are scattered fibroglandular densities. LEFT RECOMMENDATION DUE DATE: 12 Months Left Mammography Screening Robinson Bravo MD IMG MG EXAMS Fi nal Result documented in this encounter Visit Diagnoses Diagnosis Abnormal mammogram Abnormal mammogram, unspecified Abnormal mammogram Abnormal mammogram, unspecified Abnormal mammogram Abnormal mammogram, unspecified documented in this encounter Additional Health Concerns Assessment Noted Time PHQ-2 Depression Total Score: 0 08/03/20 20 3:36 PM EST documented as of this encounter Care Teams Websphere Process Server Developer Relationship Specialty Start Date End Date Robinson Mora MD [address] [place] [phone] [email or web address] PCP - General 07/02/17 Silas Puckett MD [address] [place] [address] [place] [address] Surgeon Bariatrics 07/27/21 documented as of this encounter Additional Source Comments The information contained in this document represents components of the legal health record. It is not the complete legal health record.[facility]
--- OUTSIDE RECORDS SUMMARY | 2025-05-14 10:25 | XMS_ITS | Encounter Summary ---
Author Organization [facility] Address [address] [place] [address] Phone Care Team Providers Care Editor Publications Name Role Phone Robinson Mora MD Primary Care Prov ider Silas Puckett MD Unavailable [phone] Encounter Details Date Type Department Care Team (Late st Contact Info) Description 09/06/2017 Transcribe Orders [facility] Laboratory [address] [place] [address] Deborah Nugent NP [address] [place] [address] Dr KRUEGER [place], [place] [phone] Fatigue, unspecified type (Primary Dx); Cough; Hypothyroidism, unspecified type Social History Tobacco Use Types Packs/Day Years [...] documented as of this encounter Results * TSH (09/06/2017 2:11 PM EST) TSH 0.70 0.27 - 4.20 uIU/mL [facility] Blood 09/06/2017 2:11 PM EST 09/06/2017 2:16 PM EST Deborah Nugent PARTS CASTING MACHINE OPERATOR LAB BLOOD ORDERABLES Fin al Result Performing Organization Address [facility] Co de Phone Number [address] [address] * Immunoglobulin E, total (09/06/2017 2:11 PM EST) IGE 98.5 <=214 kU/L [facility]/[address] Blood 09/06/2017 2:11 PM EST 09/06/2017 2:16 PM EST Deborah Nugent PARTS CASTING MACHINE OPERATOR LAB BLOOD ORDERABLES Fin al Result Performing Organization Address [facility] Phone Number [facility] MED/[address] [place] [address] * Immunoglobulin M (09/06/2017 2:11 PM EST) IMMUNOGLOBULIN M 73 40 - 230 mg/dL [facility] Blood 09/06/2017 2:11 PM EST 09/06/2017 2:16 PM EST Deborah Nugent PARTS CASTING MACHINE OPERATOR LAB BLOOD ORDERABLES Fin al Result Performing Organization Address [facility] Co de Phone Number [address] [address] * Immunoglobulin G (09/06/2017 2:11 PM EST) IMMUNOGLOBULIN G 1,397 700 - 1,600 mg/dL [facility] Blood 09/06/2017 2:11 PM EST 09/06/2017 2:16 PM EST Deborah Nugent PARTS CASTING MACHINE OPERATOR LAB BLOOD ORDERABLES Fin al Result Performing Organization Address [facility] Co de Phone Number [address] [place] [address] * Immunoglobulin A (09/06/2017 2:11 PM EST) IgA 179 70 - 400 mg/dL [facility] Blood 09/06/2017 2:11 PM EST 09/06/2017 2:16 PM EST Deborah Nugent PARTS CASTING MACHINE OPERATOR LAB BLOOD ORDERABLES Fin al Result [address] [address] * (ABNORMAL) CBC and differential (09/06/2017 2:11 PM EST) WBC 9.92 3.40 - 11.20 K/uL [facility] RBC 4.22 3.80 - 4.80 M/uL [facility] HGB 11.3(L) 12.0 - 15.0 g/dL [facility] HCT 35.3(L) 36.0 - 46.0 % [facility] PLT 405(H) 130 - 400 K/uL [facility] MCV 83.6 79.0 - 98.0 fL [facility] MCH 26.8(L) 27.0 - 34.8 pg [facility] MCHC 32.0 31.5 - 36.0 g/dL [facility] RDW 13.3 10.8 - 14.6 % [facility] MPV 9.2(L) 9.4 - 12.4 fl [facility] NRBC 0.00 /100 WBCs [facility] ABSOLUTE NRBC 0.00 K/uL [facility] DIFF METHOD Auto [facility] NEUTS 56.6 45.30 - 77.70 % [facility] LYMPHS 34.8 12.30 - 39.70 % [facility] MONOS 5.7 4.10 - 12.80 % [facility] EOS 1.6 0 - 7.2 % [facility] BASOS 1.0 0 - 2.80 % [facility] Granulocytes, immature (%) 0.3 0.0 - 0.9 % [facility] ABSOLUTE NEUTS 5.61 1.40 - 7.70 K/uL [facility] ABSOLUTE LYMPHS 3.45(H) 0.60 - 3.20 K/uL [facility] ABSOLUTE MONOS 0.57 0.11 - 0.59 K/uL [facility] ABSOLUTE EOS 0.16 0.01 - 0.50 K/uL [facility] ABSOLUTE BASOS 0.10(H) 0.00 - 0.08 K/uL [facility] Granulocytes, immature 0.03 0.00 - 0.05 K/uL [facility] Blood 09/06/2017 2:11 PM EST 09/06/2017 2:16 PM EST Deborah Nugent PARTS CASTING MACHINE OPERATOR LAB BLOOD ORDERABLES Fin al Result [facility] [address] [place] [address] documented in this encounter Visit Diagnoses Diagnosis Fatigue, unspecified type- Primary Cough Hypothyroidism, unspecified type documented in this encounter Care Teams Editor Publications Relationship Specialty Start Date End Date Robinson Mora MD [address] [place] [phone] [email or web address] PCP - General 07/02/17 Silas Puckett MD [address] [place] [address] [place] [address] Surgeon Bariatrics 07/27/21 documented as of this encounter Additional Source Comments The information contained in this document represents components of the legal health record. It is not the complete legal health record.[facility]
--- OUTSIDE RECORDS SUMMARY | 2025-05-14 10:25 | XMS_ITS | Encounter Summary ---
Author Organization [facility] Address [address] [place] [address] Phone Care Team Providers Care Front End Technician Name Role Phone Robinson Mora MD Primary Care Prov ider Silas Puckett MD Unavailable [phone] Encounter Details Date Type Department Care Team (Late st Contact Info) Description 09/19/2017 Procedure Pass [facility], [address] [address] Social History Tobacco Use Types Packs/Day Years [...] on filedocumented in this encounter Care Teams Front End Technician Relationship Specialty Start Date End Date Robinson Mora MD [address] [place] [phone] [email or web address] PCP - General 07/02/17 Silas Puckett MD [address] [place] [address] [place] [address] Surgeon Bariatrics 07/27/21 documented as of this encounter Additional Source Comments The information contained in this document represents components of the legal health record. It is not the complete legal health record.[facility]
--- OUTSIDE RECORDS SUMMARY | 2025-05-14 10:25 | XMS_ITS | Encounter Summary ---
Author Organization [facility] Address [address] [place] [address] Phone Care Team Providers Care Armature Inspector Name Role Phone Robinson Mora MD Primary Care Prov ider Silas Puckett MD Unavailable [phone] Encounter Details Date Type Department Care Team (Late st Contact Info) Description 07/17/2017 Ancillary Orders Virtual Department [address] [place] [address] Robinson Mora MD [address] [place] [address] [email or web address] Dyspnea, unspecified type Social History Tobacco Use Types Packs/Day Years Used Date Smoking Tobacco: Never Assessed Comments Unknown Sex and Gender Information Value Date Recorded Sex Assigned at Female 11/03/2017 2:49 PM EST Legal Sex Female 9:21 PM EDT Gender Identity Female 11/03/2017 2:49 PM EST Sexual Orientation Straight 11/03/2017 2: 49 PM EST documented as of this encounter Plan of Treatment Not on file documented as of this encounter Results * TTE COMPREHENSIVE (07/29/2017 9:39 AM EST) Body Surface Area 1.5 m2 Aortic Valve Peak Velocity 1,410 mm/s Aortic Valve Peak Gradient 8 mmHg Aortic Sinus Diameter 29 mm Inferior Vena Cava Diameter 13 0.0 - 21 mm Left Ventricle Internal Diameter End Diastole 57 37 - 52 mm Left Ventricle Internal Diameter End Systole 39 22 - 35 mm Left Ventricular Outflow Tract Diameter 19 mm LVOT VTI REST 291 mm Left Ventricular Outflow Tract Velocity 1,430 mm/s Left Ventricular Outflow Tract Gradient at Rest 8 mmHg Left Ventricular Posterior Wall Thickness 9 mm Ejection Fraction 67 50 - 75 Percent Mitral Valve A Wave Speed 763 mm/s Mitral Valve E Wave Speed 613 mm/s Tricuspid Valve Peak Velocity 1,460 mm/s Raw LV EF% 53 % Left Atrium Dimension Anterior-Posterior 43 15 - 40 mm Interventricular Septum Thickness 1 mm Aortic Valve Sinus Index 1 19 20 - 32 mm Aortic Sinus Index 19 mm Anatomical Region Laterality Modality Heart Ultrasound Narrative 07/29/2017 3:03 PM EST Normal LV size and function. Grossly normal valve function. No clear cardiac cause for SOB could be found. Left Ventricle The left ventricular cavity size and wall thickness are normal. The estimated ejection fraction is 67% (Normal 50-75%). The left ventricular ejection fraction was measured by visual estimate. Left ventricular diastolic function appears within normal limits for age. Right Ventricle The right ventricular size is normal. The right ventricular systolic function is normal. Left Atrium The left atrium is borderline dilated. The left atrial anterior-posterior dimension measures 43 mm (normal 15-40 mm). Right Atrium The right atrium is normal in size. The IVC is normal in size (2.1cm or less). The IVC measures 13 mm (normal <=21 mm). Mitral Valve The mitral valve appears normal. The E/A ratio is 0.8 There is trace mitral regurgitation detected by spectral and color Doppler. Tricuspid Valve The tricuspid valve appears normal. The TV peak gradient is 9mmHg with an estimated RAP of 3. The RVSP is estimated to be 12mmHg. There is evidence of trace tricuspid regurgitation by color and spectral Doppler. Aortic Valve The aortic valve appears normal. The aortic valve is tricuspid. The peak aortic valve gradient is 8 mmHg. There is no evidence of aortic regurgitation by color and spectral Doppler. Pulmonic Valve The pulmonary valve appears normal. There is no evidence of pulmonary regurgitation by color and spectral Doppler. Pericardium There is no evidence of pericardial effusion. General Findings The image quality was fair (3). Comparison Findings No Prior study to compare to. No prior studies for comparison. Robinson Bravo MD CV ECHO ORDERABLES Final Result documented in this encounter Visit Diagnoses Diagnosis Dyspnea, unspecified type Dyspnea, unspecified type documented in this encounter Care Teams Armature Inspector Relationship Specialty Start Date End Date Robinson Mora MD [address] [place] [phone] [email or web address] PCP - General 07/02/17 Silas Puckett MD [address] [place] [address] [place] [address] Surgeon Bariatrics 07/27/21 documented as of this encounter Additional Source Comments The information contained in this document represents components of the legal health record. It is not the complete legal health record.[facility]
--- OUTSIDE RECORDS SUMMARY | 2025-05-14 10:25 | XMS_ITS | Encounter Summary ---
Author Organization [facility] Address [address] [place] [address] Phone Care Team Providers Care Tablet Making Machine Operator Name Role Phone Robinson Mora MD Primary Care Prov ider Silas Puckett MD Unavailable [phone] Encounter Details Date Type Department Care Team (Late st Contact Info) Description 09/30/2023 Procedure Pass [facility], X-Ray - [address] [address] Social History Tobacco Use Types Packs/Day Years [...] documented as of this encounter Care Teams Tablet Making Machine Operator Relationship Specialty Start Date End Date Robinson Mora MD [address] [place] [phone] [email or web address] PCP - General 07/02/17 Silas Puckett MD [address] [place] [address] [place] [address] Surgeon Bariatrics 07/27/21 documented as of this encounter Additional Source Comments The information contained in this document represents components of the legal health record. It is not the complete legal health record.[facility]
--- OUTSIDE RECORDS SUMMARY | 2025-05-14 10:25 | XMS_ITS | Encounter Summary ---
Author Organization [facility] Address [address] [place] [address] Phone Care Team Providers Care Wash Crew Person Name Role Phone Robinson Mora MD Primary Care Prov ider Silas Puckett MD Unavailable [phone] Encounter Details Date Type Department Care Team (Late st Contact Info) Description 06/22/2022 Procedure Pass [facility], [address] [phone] Social History Tobacco Use Types Packs/Day Years [...] documented as of this encounter Care Teams Wash Crew Person Relationship Specialty Start Date End Date Robinson Mora MD [address] [place] [phone] [email or web address] PCP - General 07/02/17 Silas Puckett MD [address] [place] [address] [place] [address] Surgeon Bariatrics 07/27/21 documented as of this encounter Additional Source Comments The information contained in this document represents components of the legal health record. It is not the complete legal health record.[facility]
--- OUTSIDE RECORDS SUMMARY | 2025-05-14 10:25 | XMS_ITS | Encounter Summary ---
Author Organization [facility] Address [address] [place] [address] Phone Care Team Providers Care Weapons Officer Name Role Phone Robinson Mora MD Primary Care Prov ider Silas Puckett MD Unavailable [phone] Encounter Details Date Type Department Care Team (Late st Contact Info) Description 07/06/2017 Ancillary Orders [facility], X-Ray - [address] [address] Delio Fuller MD [address] [place] [address] [email or web address] Odynophagia Social History Tobacco Use Types Packs/Day Years [...] documented as of this encounter Results * FL BARIUM SWALLOW ESOPHAGRAM SINGLE CONTRAST (07/30/2017 9:08 AM EST) Anatomical Region Laterality Modality Chest Radiographic Desi ging 07/30/2017 9:22 AM EST Impressions 07/30/2017 10:14 AM EST Questionably slightly weak esophageal motility but otherwise normal barium swallow. No erosive changes or other structural abnormalities. FLUOROSCOPY TIME: 1:52 MIN 43 IMAGES/FRAMES POS - [id number] Edited by: Eden Dolan on 07/30/2017 9:38 AM Narrative 07/30/2017 10:14 AM EST The refuse and recycling worker film of the neck shows no soft tissue masses, opaque foreign bodies or suspicious calcifications. A biphasic study was performed including cine radiography of the oropharynx in two projections and ingestion of a 13 mm tablet. Oropharyngeal motility seems normal. No penetration, aspiration, cricopharyngeal achalasia or nasopharyngeal reflux. Esophageal motility is very minimally weak but normally-ordered. No spasm or significant tertiary contractions. No stricturing, ulceration or masses are apparent. The 13 mm tablet passed promptly all the way into the stomach. No hernia is apparent. Reflux could not be elicited with provocative maneuvers. Procedure Note Vicente Zapata MD - 07/30/2017 The refuse and recycling worker film of the neck shows no soft tissue masses, opaque foreignbodies or suspicious calcifications. A biphasic study was performed including cine radiography of theoropharynx in two projections and ingestion of a 13 mm tablet. Oropharyngeal motility seems normal. No penetration, aspiration,cricopharyngeal achalasia or nasopharyngeal reflux. Esophageal motility is very minimally weak but normally-ordered. No spasmor significant tertiary contractions. No stricturing, ulceration or masses are apparent. The 13 mm tablet passed promptly all the way into the stomach. No hernia is apparent. Reflux could not be elicited with provocative maneuvers. IMPRESSION: Questionably slightly weak esophageal motility but otherwise normal bariumswallow. No erosive changes or other structural abnormalities. FLUOROSCOPY TIME: 1:52 MIN 43 IMAGES/FRAMES POS - [id number] Edited by: Eden Dolan on 07/30/2017 9:38 AM Delio Fuller MD [facility] Final Result documented in this encounter Visit Diagnoses Diagnosis Odynophagia Dysphagia, unspecified Odynophagia Dysphagia, unspecified documented in this encounter Care Teams Weapons Officer Relationship Specialty Start Date End Date Robinson Mora MD [address] [place] [address] [email or web address] PCP - General 07/02/17 Silas Puckett MD [address] [place] [address] [place] [address] Surgeon Bariatrics 07/27/21 documented as of this encounter Additional Source Comments The information contained in this document represents components of the legal health record. It is not the complete legal health record.[facility]
== END 2025-05-14 10:36 | disposition home or self-care (01) ==
LOC: HO.HBS 09:38
PROVIDERS: PCP Family Medicine; Visit Provider Physician Assistant Surgical
DX: E66.9 Obesity, unspecified (principal); Z68.34 Body mass index [BMI] 34.0-34.9, adult; Z90.3 Acquired absence of stomach [part of]; Z98.84 Bariatric surgery status
CPT/HCPCS: 99213

== ENCOUNTER 2025-05-25 09:03 | Outpatient (REF) | payer BC, SELFPAY ==
[2025-05-25 09:18] LABS: MANUAL DIFF FLAG NO
[2025-05-25 09:56] LABS: Hematocrit 40.0 % (37.0-47.0); Hemoglobin 13.4 g/dl (12.0-16.0); Imm Gran Abs Auto 0.01 X10*3/uL (0.00-0.03); Imm Gran Pct Auto 0.2 % (0.0-0.4); Lymphocytes Absolute Auto 2.2 X10*3/uL (1.2-4.9); Mean Corpuscular HGB Conc 33.5 g/dl (31.0-35.0); Mean Corpuscular Hemoglobin 28.5 pg (27.0-33.0); Mean Corpuscular Volume 84.9 fL (80.0-98.0); NRBC Abs Auto 0.000 X10*3/uL (0.0-0.012); NRBC Pct Auto 0.0 /100WBC (0.0-0.2); Platelet Count 360 X10*3/uL (160-400); Red Blood Count 4.71 X10*6/uL (4.20-5.50); White Blood Count 5.7 X10*3/uL (4.8-10.8)
[2025-05-25 10:08] LABS: Hemoglobin A1C 127.4130 umol/L; Total Hemoglobin (HGBA1C) 3452.4135 umol/L
--- OUTSIDE RECORDS SUMMARY | 2025-05-25 10:24 | XMS_ITS | Encounter Summary ---
Author Organization [facility] Address [address] [place] [address] Phone Care Team Providers Care Medical Assistant Prn Name Role Phone Robinson Mora MD Primary Care Prov ider Silas Puckett MD Unavailable [phone] Encounter Details Date Type Department Care Team (Late st Contact Info) Description 07/17/2017 Ancillary Orders Virtual Department [address] [place] [address] Robinson Mora MD [address] [place], [place] [phone] [email or web address] Dyspnea, unspecified type Social History Tobacco [...] type documented in this encounter Care Teams Medical Assistant Prn Relationship Specialty Start Date End Date Robinson Mora MD [address] [place] [address] [email or web address] PCP - General 07/02/17 Silas Puckett MD [address] [place] [address] [place] [address] Surgeon Bariatrics 07/27/21 documented as of this encounter Additional Source Comments The information contained in this document represents components of the legal health record. It is not the complete legal health record.[facility]
--- OUTSIDE RECORDS SUMMARY | 2025-05-25 10:24 | XMS_ITS | Encounter Summary ---
Author Organization [facility] Address [address] [place] [address] Phone Care Team Providers Care In Room Dining Server Name Role Phone Robinson Mora MD Primary Care Prov ider Silas Puckett MD Unavailable [phone] Encounter Details Date Type Department Care Team (Late st Contact Info) Description 08/30/2017 Procedure Pass [facility], Ct Scan - [address] [address] Social History Tobacco Use Types Packs/Day Years [...] on filedocumented in this encounter Care Teams In Room Dining Server Relationship Specialty Start Date End Date Robinson Mora MD [address] [place] [address] [email or web address] PCP - General 07/02/17 Silas Puckett MD [address] [place] [address] [place] [address] Surgeon Bariatrics 07/27/21 documented as of this encounter Additional Source Comments The information contained in this document represents components of the legal health record. It is not the complete legal health record.[facility]
--- OUTSIDE RECORDS SUMMARY | 2025-05-25 10:24 | XMS_ITS | Clinical Summary ---
Author Organization [facility] Address [address] [place] [address] Phone Care Team Providers Care Network And Threat Support Specialist Name Role Phone Robinson Mora MD Primary Care Prov ider Silas Puckett MD Unavailable [phone] Allergies Active Allergy Reactions Criticality Noted Date [...] Active ferrous sulfate 325 mg (65 mg paiute-shoshone iron) tablet Take 325 mg by mouth. [...] follow yearly so she has a local mail sorter. My questions to Dr. Castellon are whether [...] severe forms of PAH (Pulmonary Circulation, 2017; [phone]). Published data suggest that these patients may [...] to follow up with her PCP and mail sorter to determine other possible noncardiac causes of [...] weeks. Patient advised to use probiotics and Jasson to maintain normal L pineda. I have referred her to ENT to evaluate whether upper airway obstruction from her tonsils or maybe even exercise-induced laryngeal obstruction may be at play here. The reimbursement manager also advised her to see ear nose [...] DIABETES 12/26/2020 12/26/2017 DEPRESSION SCREENING 08/03/2021 08/03/2020 MAMMOGRAM 09/04/2024 09/04/2022, 05/04/2021 INFLUENZA VACCINE (#1) 2025 , 09/05/2023, 07/02/2022, Additional history exists COVID-19 VACCINE ( season) 2025 10/21/2023, 10/05/2022, 07/16/2021, Additional history exists Adult Td,Tdap Booster 10/18/2026 10/18/2016 PAP SMEAR 09/21/2027 09/21/2024, 08/17, 10/21/2017 Contraceptive Implant 09/24/2027 09/24/2024 SMOKING STATUS [...] this topic Medical Devices Implanted Type Area Outpatient Dietitian Device Identifier Shelf Expiration Date Model / [...] SEE NARRATIVE - 09/25/2024 4:01 PM EST [address] [address] Animal Trainer Supervisor: Jairo Robles MD VICE PRESIDENT PRECISION MARKET INSIGHTS Cytology Report FINAL DIAGNOSIS A. PAP SMEAR (THIN PREP) CV: SPECIMEN ADEQUACY: Satisfactory for evaluation; transformation zone present. Limited by inflammation INTERPRETATION: NEGATIVE FOR INTRAEPITHELIAL LESION OR MALIGNANCY. Due to blood, the specimen was reprocessed with 10% Glacial Acetic Acid. This specimen was analyzed by the automated ThinPrep Imaging System ([employer].) and manually rescreened by a cyber systems administrator and/or pathologist. Electronically Signed Out By: SYDNIE [...] : 1980 (Age: 43) Sex: F Institution: [facility] Location: [facility] Date of Collection: 09/21/2024 Date of Reported: 09/25/2024 16:01 Results to: oRbinson Bravo Robinson Bravo MD CYTOLOGY ORDERABLE S Final [...] EDT) TSH 0.45(L) 0.50 - 5.70 uIU/mL [facility] 12/26/2017 1:55 PM EDT 12/26/2017 2:35 PM EDT Ludwin Castellon MD, PhD LAB BLOOD ORDERABLES Haley andrade Result [facility] [address] [place] [address] from Last 3 Months or Most Recently Relevant to Health Maintenance Insurance [facility] [place] [place] [address] [place] [address] Advance Directives For more information, please contact: [phone] (9AM - 5PM [facility], Saturday-Saturday) Documents on File Type Date Recorded Patient Jewel Hole Finish Opener Expl anation Healthcare Proxy 02/18/2018 11:15 AM Signed On 02/11/2018 Care Teams Network And Threat Support Specialist Relationship Specialty Start Date End Date Robinson Mora MD [address] [place] [address] [email or web address] PCP - General 07/02/17 Silas Puckett MD [address] [place] [address] [place] [address] Surgeon Bariatrics 07/27/21 Additional Source Comments The information contained in this document represents components of the legal health record. It is not the complete legal health record.[facility]
--- OUTSIDE RECORDS SUMMARY | 2025-05-25 10:24 | XMS_ITS | Encounter Summary ---
Author Organization [facility] Address [address] [place] [address] Phone Care Team Providers Care Office Manager Executive Assistant Name Role Phone Robinson Mora MD Primary Care Prov ider Silas Puckett MD Unavailable [phone] Encounter Details Date Type Department Care Team (Late st Contact Info) Description 09/30/2023 Procedure Pass [facility], [address] [address] Social History Tobacco Use Types Packs/Day Years [...] documented as of this encounter Care Teams Office Manager Executive Assistant Relationship Specialty Start Date End Date Robinson Mora MD [address] [place] [address] [email or web address] PCP - General 07/02/17 Silas Puckett MD [address] [place] [address] [place] [address] Surgeon Bariatrics 07/27/21 documented as of this encounter Additional Source Comments The information contained in this document represents components of the legal health record. It is not the complete legal health record.[facility]
--- OUTSIDE RECORDS SUMMARY | 2025-05-25 10:24 | XMS_ITS | Encounter Summary ---
Author Organization [facility] Address [address] [place] [address] Phone Care Team Providers Care Safety Leader Name Role Phone Robinson Mora MD Primary Care Prov ider Silas Puckett MD Unavailable [phone] Encounter Details Date Type Department Care Team (Late st Contact Info) Description 06/22/2022 Transcribe Orders Virtual Department [address] [place] [address] Robinson Mora MD [address] [place], [place] [phone] [email or web address] Breast screening (Primary Dx) Social History [...] documented as of this encounter Care Teams Safety Leader Relationship Specialty Start Date End Date Robinson Mora MD [address] [place] [address] PCP - General 07/02/17 Silas Puckett MD [address] [place] [address] [place] [address] Surgeon Bariatrics 07/27/21 documented as of this encounter Additional Source Comments The information contained in this document represents components of the legal health record. It is not the complete legal health record.[facility]
--- OUTSIDE RECORDS SUMMARY | 2025-05-25 10:24 | XMS_ITS | Encounter Summary ---
Author Organization [facility] Address [address] [place] [address] Phone Care Team Providers Care Rn Visiting Name Role Phone Robinson Mora MD Primary Care Prov ider Silas Puckett MD Unavailable Encounter Details Date Type Department Care Team (Late st Contact Info) Description 06/22/2022 Procedure Pass [facility], [address] [phone] Social History Tobacco Use Types Packs/Day Years [...] documented as of this encounter Care Teams Rn Visiting Relationship Specialty Start Date End Date Robinson Mora MD [address] [place] [phone] [email or web address] PCP - General 07/02/17 Silas Puckett MD [address] [place] [address] [place] [address] Surgeon Bariatrics 07/27/21 documented as of this encounter Additional Source Comments The information contained in this document represents components of the legal health record. It is not the complete legal health record.[facility]
--- OUTSIDE RECORDS SUMMARY | 2025-05-25 10:24 | XMS_ITS | Encounter Summary ---
Author Organization [facility] Address [address] [place] [address] Phone Care Team Providers Care Radiotelegrapher Name Role Phone Robinson Mora MD Primary Care Prov ider Silas Puckett MD Unavailable [phone] Encounter Details Date Type Department Care Team (Late st Contact Info) Description 09/30/2023 Procedure Pass [facility], X-Ray - [address] [address] Social History Tobacco Use Types Packs/Day Years [...] documented as of this encounter Care Teams Radiotelegrapher Relationship Specialty Start Date End Date Robinson Mora MD [address] [place] [address] [email or web address] PCP - General 07/02/17 Silas Puckett MD [address] [place] [address] [place] [address] Surgeon Bariatrics 07/27/21 documented as of this encounter Additional Source Comments The information contained in this document represents components of the legal health record. It is not the complete legal health record.[facility]
--- OUTSIDE RECORDS SUMMARY | 2025-05-25 10:24 | XMS_ITS | Encounter Summary ---
Author Organization [facility] Address [address] [place] [address] Phone Care Team Providers Care Rough Carpenter Name Role Phone Robinson Mora MD Primary [...] UPPER EXTREM COMBO Ernesto De León MD [address] [place] [address] Phone: tel: fax: [email or web address] Referral ID Status Reason Start Date Expiration Date Visits Re quested Visits Authorized [id number] Closed 09/25/2023 11/23/2023 1 1 * Outpatient Procedure - Closed Specialty Diagnoses / Procedures Referred By Dorie sanders Referred To Contact Radiology Diagnoses Right shoulder pain, unspecified chronicity Procedures FL Shoulder Arthrogram (Right) Ernesto De León MD [address] [place] [address] Phone: tel: fax: [email or web address] Referral ID Status Reason Start Date Expiration Date Visits Re quested Visits Authorized [id number] Closed 09/30/2023 1 1 Encounter Details Date Type Department Care Team (Latest Contact Info) Description 09/30/2023 Transcribe Orders Virtual Department [address] [place] [address] Ernesto De León MD [address] [place] [address] [email or web address] Right shoulder pain, unspecified chronicity (Primary Dx) [...] joint. Injection of approximately 1 cc of [id number] confirmed intra-articular position. Approximately 12 mL of [...] documented as of this encounter Care Teams Rough Carpenter Relationship Specialty Start Date End Date Robinson Mora MD [address] [place] [phone] [email or web address] PCP - General 07/02/17 Silas Puckett MD [address] [place] [address] [place] [address] Surgeon Bariatrics 07/27/21 documented as of this encounter Additional Source Comments The information contained in this document represents components of the legal health record. It is not the complete legal health record.[facility]
--- OUTSIDE RECORDS SUMMARY | 2025-05-25 10:24 | XMS_ITS | Encounter Summary ---
Author Organization [facility] Address [address] [place] [address] Phone Care Team Providers Care Anglesmith Helper Name Role Phone Robinson Mora MD Primary Care Prov ider Silas Puckett MD Unavailable [phone] Encounter Details Date Type Department Care Team (Late st Contact Info) Description 05/04/2021 Procedure Pass [address] [phone] Social History Tobacco Use Types Packs/Day Years [...] documented as of this encounter Care Teams Anglesmith Helper Relationship Specialty Start Date End Date Robinson Mora MD [address] [place] [phone] [email or web address] PCP - General 07/02/17 Silas Puckett MD [address] [place] [address] [place] [address] Surgeon Bariatrics 07/27/21 documented as of this encounter Additional Source Comments The information contained in this document represents components of the legal health record. It is not the complete legal health record.[facility]
--- OUTSIDE RECORDS SUMMARY | 2025-05-25 10:24 | XMS_ITS | Encounter Summary ---
Author Organization [facility] Address [address] [place] [address] Phone Care Team Providers Care Refrigeration Mechanic Helper Name Role Phone Robinson Mora MD Primary Care Prov ider Silas Puckett MD Unavailable [phone] Encounter Details Date Type Department Care Team (Late st Contact Info) Description 08/03/2020 Procedure Pass [facility] Echocardiography [address] [place] [address] Social History Tobacco Use Types Packs/Day Years [...] documented as of this encounter Care Teams Refrigeration Mechanic Helper Relationship Specialty Start Date End Date Robinson Mora MD [address] [place] [address] [email or web address] PCP - General 07/02/17 Silas Puckett MD [address] [place] [address] [place] [address] Surgeon Bariatrics 07/27/21 documented as of this encounter Additional Source Comments The information contained in this document represents components of the legal health record. It is not the complete legal health record.[facility]
--- OUTSIDE RECORDS SUMMARY | 2025-05-25 10:24 | XMS_ITS | Encounter Summary ---
Author Organization [facility] Address [address] [place] [address] Phone Care Team Providers Care Utility Assembler Name Role Phone Robinson Mora MD Primary Care Prov ider Silas Puckett MD Unavailable [phone] Encounter Details Date Type Department Care Team (Late st Contact Info) Description 04/20/2021 Ancillary Orders Virtual Department [address] [place] [address] Robinson Mora MD [address] [place] [address] [email or web address] Breast screening Social History Tobacco Use Types [...] documented as of this encounter Care Teams Utility Assembler Relationship Specialty Start Date End Date Robinson Mora MD [address] [place] [address] [email or web address] PCP - General 07/02/17 Silas Puckett MD [address] [place] [address] Dr Camacho, [place]ORDY [address] Surgeon Bariatrics 07/27/21 documented as of this encounter Additional Source Comments The information contained in this document represents components of the legal health record. It is not the complete legal health record.[facility]
--- OUTSIDE RECORDS SUMMARY | 2025-05-25 10:24 | XMS_ITS | Encounter Summary ---
Author Organization [facility] Address [address] [place] [address] Phone Care Team Providers Care Manager Of Application Development Name Role Phone Robinson Mora MD Primary Care Prov ider Silas Puckett MD Unavailable [phone] Encounter Details Date Type Department Care Team (Late st Contact Info) Description 07/06/2017 Ancillary Orders [facility], X-Ray - [address] [address] Delio Fuller MD [address] [place] [address] [email or web address] Odynophagia Social History Tobacco Use Types Packs/Day [...] AM Narrative 07/30/2017 10:14 AM EST The farm machinery engine mechanic film of the neck shows no soft [...] Note Vicente Zapata MD - 07/30/2017 The farm machinery engine mechanic film of the neck shows no soft [...] on 07/30/2017 9:38 AM Delio Fuller MD [facility] Final Result documented in this encounter Visit Diagnoses Diagnosis Odynophagia Dysphagia, unspecified Odynophagia Dysphagia, unspecified documented in this encounter Care Teams Manager Of Application Development Relationship Specialty Start Date End Date Robinson Mora MD [address] [place] [address] [email or web address] PCP - General 07/02/17 Silas Puckett MD [address] [place] [address] [place] [address] Surgeon Bariatrics 07/27/21 documented as of this encounter Additional Source Comments The information contained in this document represents components of the legal health record. It is not the complete legal health record.[facility]
--- OUTSIDE RECORDS SUMMARY | 2025-05-25 10:24 | XMS_ITS | Encounter Summary ---
Author Organization [facility] Address [address] [place] [address] Phone Care Team Providers Care Electrolytic De Scaler Name Role Phone Robinson Mora MD Primary Care Prov ider Silas Puckett MD Unavailable [phone] Encounter Details Date Type Department Care Team (Late st Contact Info) Description 11/05/2017 Procedure Pass [facility] [address] [place] [address] Social History Tobacco Use Types Packs/Day Years [...] on filedocumented in this encounter Care Teams Electrolytic De Scaler Relationship Specialty Start Date End Date Robinson Mora MD [address] [place] [address] [email or web address] PCP - General 07/02/17 Silas Puckett MD [address] [place] [address] [place] [address] Surgeon Bariatrics 07/27/21 documented as of this encounter Additional Source Comments The information contained in this document represents components of the legal health record. It is not the complete legal health record.[facility]
--- OUTSIDE RECORDS SUMMARY | 2025-05-25 10:24 | XMS_ITS | Encounter Summary ---
Author Organization [facility] Address [address] [place] [address] Phone Care Team Providers Care Solution Design And Analysis Manager Name Role Phone Robinson Mora MD Primary Care Prov ider Silas Puckett MD Unavailable [phone] Encounter Details Date Type Department Care Team (Late st Contact Info) Description 04/20/[address] [facility], [address] [phone] Social History Tobacco Use Types Packs/Day Years [...] documented as of this encounter Care Teams Solution Design And Analysis Manager Relationship Specialty Start Date End Date Robinson Mora MD [address] [place] [phone] [email or web address] PCP - General 07/02/17 Silas Puckett MD [address] [place] [address] [place] [address] Surgeon Bariatrics 07/27/21 documented as of this encounter Additional Source Comments The information contained in this document represents components of the legal health record. It is not the complete legal health record.[facility]
--- OUTSIDE RECORDS SUMMARY | 2025-05-25 10:24 | XMS_ITS | Encounter Summary ---
Author Organization [facility] Address [address] [place] [address] Phone Care Team Providers Care Runstitching Machine Operator Name Role Phone Robinson Mora MD Primary Care Prov ider Silas Puckett MD Unavailable [phone] Encounter Details Date Type Department Care Team (Late st Contact Info) Description 05/04/2021 Ancillary Orders Virtual Department [address] [place] [address] Robinson Mora MD [address] [place] [address] [email or web address] Abnormal mammogram Social History Tobacco Use [...] documented as of this encounter Care Teams Runstitching Machine Operator Relationship Specialty Start Date End Date Robinson Mora MD [address] [place] [phone] [email or web address] PCP - General 07/02/17 Silas Puckett MD [address] [place] [address] [place] [address] Surgeon Bariatrics 07/27/21 documented as of this encounter Additional Source Comments The information contained in this document represents components of the legal health record. It is not the complete legal health record.[facility]
--- OUTSIDE RECORDS SUMMARY | 2025-05-25 10:25 | XMS_ITS | Encounter Summary ---
Author Organization [facility] Address [address] [place] [address] Phone Care Team Providers Care Knife Blade Polisher Name Role Phone Robinson Mora MD Primary Care Prov ider Silas Puckett MD Unavailable [phone] Encounter Details Date Type Department Care Team (Late st Contact Info) Description 09/19/2017 Procedure Pass [facility] Admitting Dept Virtual Department 30 [place] [address] Social History Tobacco Use Types Packs/Day Years [...] on filedocumented in this encounter Care Teams Knife Blade Polisher Relationship Specialty Start Date End Date Robinson Mora MD [address] [place] [phone] [email or web address] PCP - General 10/17/17 Silas Puckett MD [address] [place] [address] [place] [address] Surgeon Bariatrics 07/27/21 documented as of this encounter Additional Source Comments The information contained in this document represents components of the legal health record. It is not the complete legal health record.[facility]
--- OUTSIDE RECORDS SUMMARY | 2025-05-25 10:25 | XMS_ITS | Encounter Summary ---
Author Organization [facility] Address [address] [place] [address] Phone Care Team Providers Care Senior Technical Manager Name Role Phone Robinson Mora MD Primary Care Prov ider Silas Puckett MD Unavailable [phone] Encounter Details Date Type Department Care Team (Late st Contact Info) Description 09/19/2017 Procedure Pass [facility], [address] [address] Social History Tobacco Use Types Packs/Day Years [...] on filedocumented in this encounter Care Teams Senior Technical Manager Relationship Specialty Start Date End Date Robinson Mora MD [address] [place] [phone] [email or web address] PCP - General 07/02/17 Silas Puckett MD [address] [place] [address] [place] [address] Surgeon Bariatrics 07/27/21 documented as of this encounter Additional Source Comments The information contained in this document represents components of the legal health record. It is not the complete legal health record.[facility]
--- OUTSIDE RECORDS SUMMARY | 2025-05-25 10:25 | XMS_ITS | Encounter Summary ---
Author Organization [facility] Address [address] [place] [address] Phone Care Team Providers Care Transportation Maintenance Worker Name Role Phone Robinson Mora MD Primary Care Prov ider Silas Puckett MD Unavailable [phone] Encounter Details Date Type Department Care Team (Late st Contact Info) Description 09/17/2017 Procedure Pass [facility] Endoscopy Admitting Dept Virtual Department 30 [place] [address] Social History Tobacco Use Types Packs/Day Years [...] on filedocumented in this encounter Care Teams Transportation Maintenance Worker Relationship Specialty Start Date End Date Robinson Mora MD [address] [place] [phone] [email or web address] PCP - General 10/17/17 Silas Puckett MD [address] [place] [address] [place] [address] Surgeon Bariatrics 07/27/21 documented as of this encounter Additional Source Comments The information contained in this document represents components of the legal health record. It is not the complete legal health record.[facility]
--- OUTSIDE RECORDS SUMMARY | 2025-05-25 10:25 | XMS_ITS | Encounter Summary ---
Author Organization [facility] Address [address] [place] [address] Phone Care Team Providers Care Print Shop Assistant Name Role Phone Robinson Mora MD Primary Care Prov ider Silas Puckett MD Unavailable [phone] Encounter Details Date Type Department Care Team (Late st Contact Info) Description 07/06/2020 Procedure Pass [facility] Echocardiography [address] [place] [address] Social History Tobacco Use Types Packs/Day Years [...] documented as of this encounter Care Teams Print Shop Assistant Relationship Specialty Start Date End Date Robinson Mora MD [address] [place] [phone] [email or web address] PCP - General 07/02/17 Silas Puckett MD [address] [place] [address] [place] [address] Surgeon Bariatrics 07/27/21 documented as of this encounter Additional Source Comments The information contained in this document represents components of the legal health record. It is not the complete legal health record.[facility]
--- OUTSIDE RECORDS SUMMARY | 2025-05-25 10:25 | XMS_ITS | Encounter Summary ---
Author Organization [facility] Address [address] [place] [address] Phone Care Team Providers Care Visual C Developer Name Role Phone Robinson Moar MD Primary Care Prov ider Silas Puckett MD Unavailable [phone] Encounter Details Date Type Department Care Team (Late st Contact Info) Description 09/06/2017 Transcribe Orders [facility] Laboratory [address] [place] [address] Deborah Nugent NP [address] [place] [address] Dr KRUEGER [place], [place] [phone] Fatigue, unspecified type (Primary Dx); Cough; Hypothyroidism, [...] EST 09/06/2017 2:16 PM EST Deborah Nugent ROOF SLATER LAB BLOOD ORDERABLES Fin al Result Performing Organization Address [facility] Co de Phone Number [address] [address] * Immunoglobulin E, total (09/06/2017 2:11 PM EST) IGE 98.5 <=214 kU/L [facility] Blood 09/06/2017 2:11 PM EST 09/06/2017 2:16 PM EST Deborah Nugent ROOF SLATER LAB BLOOD ORDERABLES Fin al Result Performing Organization Address [facility] Phone Number [facility]/[address] [place] [address] * Immunoglobulin M (09/06/2017 2:11 PM EST) IMMUNOGLOBULIN M 73 40 - 230 mg/dL [facility] Blood 09/06/2017 2:11 PM EST 09/06/2017 2:16 PM EST Deborah Nugent ROOF SLATER LAB BLOOD ORDERABLES Fin al Result Performing Organization Address [facility] Co de Phone Number [address] [address] * Immunoglobulin G (09/06/2017 2:11 PM EST) IMMUNOGLOBULIN G 1,397 700 - 1,600 mg/dL [facility] Blood 09/06/2017 2:11 PM EST 09/06/2017 2:16 PM EST Deborah Nugent ROOF SLATER LAB BLOOD ORDERABLES Fin al Result Performing Organization Address [facility] Co de Phone Number [address] [place] [address] * Immunoglobulin A (09/06/2017 2:11 PM EST) IgA 179 70 - 400 mg/dL [facility] Blood 09/06/2017 2:11 PM EST 09/06/2017 2:16 PM EST Deborah Nugent ROOF SLATER LAB BLOOD ORDERABLES Fin al Result [address] [address] * (ABNORMAL) CBC and differential (09/06/2017 2:11 PM EST) WBC 9.92 3.40 - 11.20 K/uL [facility] RBC 4.22 3.80 - 4.80 M/uL [facility] HGB 11.3(L) 12.0 - 15.0 g/dL [facility] HCT 35.3(L) 36.0 - 46.0 % [facility] PLT 405(H) 130 - 400 K/uL [facility] MCV 83.6 79.0 - 98.0 fL [facility] MCH 26.8(L) 27.0 - 34.8 pg [facility] MCHC 32.0 31.5 - 36.0 g/dL [facility] RDW 13.3 10.8 - 14.6 % [facility] MPV 9.2(L) 9.4 - 12.4 fl [facility] NRBC 0.00 /100 WBCs [facility] ABSOLUTE NRBC 0.00 K/uL [facility] DIFF METHOD Auto [facility] NEUTS 56.6 45.30 - 77.70 % [facility] LYMPHS 34.8 12.30 - 39.70 % [facility] MONOS 5.7 4.10 - 12.80 % [facility] EOS 1.6 0 - 7.2 % [facility] BASOS 1.0 0 - 2.80 % [facility] Granulocytes, immature (%) 0.3 0.0 - 0.9 % [facility] ABSOLUTE NEUTS 5.61 1.40 - 7.70 K/uL [facility] ABSOLUTE LYMPHS 3.45(H) 0.60 - 3.20 K/uL [facility] ABSOLUTE MONOS 0.57 0.11 - 0.59 K/uL [facility] ABSOLUTE EOS 0.16 0.01 - 0.50 K/uL [facility] ABSOLUTE BASOS 0.10(H) 0.00 - 0.08 K/uL [facility] Granulocytes, immature 0.03 0.00 - 0.05 K/uL [facility] Blood 09/06/2017 2:11 PM EST 09/06/2017 2:16 PM EST Deborah Nugent ROOF SLATER LAB BLOOD ORDERABLES Fin al Result [facility] [address] [place] [address] documented in this encounter Visit Diagnoses Diagnosis Fatigue, unspecified type- Primary Cough Hypothyroidism, unspecified type documented in this encounter Care Teams Visual C Developer Relationship Specialty Start Date End Date Robinson Mora MD [address] [place] [phone] [email or web address] PCP - General 07/02/17 Silas Puckett MD [address] [place] [address] [place] [address] Surgeon Bariatrics 07/27/21 documented as of this encounter Additional Source Comments The information contained in this document represents components of the legal health record. It is not the complete legal health record.[facility]
--- OUTSIDE RECORDS SUMMARY | 2025-05-25 10:25 | XMS_ITS | Encounter Summary ---
Author Organization [facility] Address [address] [place] [address] Phone Care Team Providers Care Compress Machine Operator Name Role Phone Robinson Mora MD Primary Care Prov ider Silas Puckett MD Unavailable [phone] Encounter Details Date Type Department Care Team (Latest Contact Info) Description 09/27/2017 Transcribe Orders [facility] Laboratory [address] [place] [address] Amna Espinoza MD [address] [place] [phone] [email or web address] Dyspnea on exertion Social History Tobacco Use Types Packs/Day Years [...] on file documented as of this encounter Procedures Procedure Name Priority Date/Time Associated Diagnosis Comments ACETYLCHOLINE RECEPTOR BINDING ANTIBODY Routine 09/27/2017 10:34 AM EST Dyspnea on exertion MUSK ANTIBODY Routine 09/27/2017 10:34 AM EST Dyspnea on exertion CORTISOL AM Routine 09/27/2017 10:34 AM EST Dyspnea on exertion SS-A/SS-B ANTIBODIES Routine 09/27/2017 10:34 AM EST Dyspnea on exertion IMMUNOGLOBULIN E, TOTAL Routine 09/27/19 18 10:34 AM EST Dyspnea on exertion CCP IGG ANTIBODIES Routine 09/27/2017 10 :34 AM EST Dyspnea on exertion SCL-70 ANTIBODY Routine 09/27/2017 10:34 AM EST Dyspnea on exertion TIFFANIE-1 ANTIBODY Routine 09/27/2017 10:34 AM EST Dyspnea on exertion HYPERSENSITIVITY PNEUMONITIS SCREEN Routine 09/27/2017 10:34 AM EST Dyspnea on exertion ANTI-NEUTROPHIL CYTOPLASMIC ANTIBODY (ANCA) Routine 09/27/2017 10:34 AM EST Dyspnea on exertion SEDIMENTATION RATE (ESR) Routine 018 10:34 AM EST Dyspnea on exertion RHEUMATOID FACTOR Routine 09/27/2017 10: 34 AM EST Dyspnea on exertion C-REACTIVE PROTEIN Routine 09/27/2017 10 :34 AM EST Dyspnea on exertion ANTINUCLEAR ANTIBODY (VICTOR MANUEL) Routine 09/27/2017 10:34 AM EST Dyspnea on exertion CPK (CREATINE KINASE) Routine 09/27/2017 10:34 AM EST Dyspnea on exertion documented in this encounter Results * Musk antibody (09/27/2017 10:34 AM EST) MUSK ANTIBODY 0.00 0.00 - 0.02 nmol/L [facility] OF LAB MED AND PAT+ Comment: (NOTE) A negative result does not exclude the diagnosis of autoimmune myasthenia gravis. Testing for acetylcholine receptor binding and modulating antibodies, and striational antibody should be considered. ADDITIONAL INFORMATION This test was developed using an analyte specific reagent. Its performance characteristics were determined by [facility] in a manner consistent with CLIA requirements. This test has not been cleared or approved by the U.S. Food and Drug Administration. Blood 09/27/2017 10:3 4 AM EST 09/27/2017 10:38 AM EST Amna Espinoza MD LAB BLOOD ORDERABLES Final Re sult Performing Organization Address [facility] Co de Phone Number [facility]PT OF LAB MED AND PAT+ [address] [place] [address] * Acetylcholine receptor binding antibody (09/27/2017 10:34 AM EST) ACH RECEPTOR BIND AB 0.00 <=0.02 nmol/L [facility] LAB MED AND PAT+ Comment: (NOTE) ADDITIONAL INFORMATION This test was developed and its performance characteristics determined by [facility] in a manner consistent with CLIA requirements. This test has not been cleared or approved by the U.S. Food and Drug Administration. Blood 09/27/2017 10:3 4 AM EST 09/27/2017 10:38 AM EST us Amna Espinoza MD LAB BLOOD ORDERABLES Final Re sult Performing Organization Address City/[facility]/ZIP Co de Phone Number [facility] LAB MED AND PAT+ [address] [place] [address] * CPK (creatine kinase) (09/27/2017 10:34 AM EST) CREATINE KINASE 56 21 - 215 U/L [facility] Blood 09/27/2017 10:3 4 AM EST 09/27/2017 10:39 AM EST Amna Espinoza MD LAB BLOOD ORDERABLES Final Re sult Performing Organization Address City/[facility]/ZIP Co de Phone Number [address] [address] * Cortisol AM (09/27/2017 10:34 AM EST) CORTISOL AM 13.5 6.2 - 19.4 ug/dL [facility] Blood 09/27/2017 10:3 4 AM EST 09/27/2017 10:39 AM EST Amna Espinoza MD LAB BLOOD ORDERABLES Final Re sult Performing Organization Address [facility] Co de Phone Number [address] [address] * Anti-Neutrophil Cytoplasmic Antibody (ANCA) (09/27/2017 10:34 AM EST) C-ANCA Negative Negative [facility] P-ANCA Negative Negative [facility] Comment: (NOTE) Negative for cANCA and pANCA patterns by immunofluorescence. ADDITIONAL INFORMATION This test was developed and its performance characteristics determined by [facility] in a manner consistent with CLIA requirements. This test has not been cleared or approved by the U.S. Food and Drug Administration. Blood 09/27/2017 10:3 4 AM EST 09/27/2017 10:38 AM EST us Amna Espinoza MD LAB BLOOD ORDERABLES Final Re sult Performing Organization Address City/[facility]/ZIP Co de Phone Number [facility] MED AND PAT+ [address] [place] [address] * CCP IgG antibodies (09/27/2017 10:34 AM EST) CCP AB, S <15.6 <20.0 (Negative) U [facility] MED AND PAT+ Blood 09/27/2017 10:3 4 AM EST 09/27/2017 10:38 AM EST Amna Espinoza MD LAB BLOOD ORDERABLES Final Re sult [facility] MED AND PAT+ [address] [place] [address] * (ABNORMAL) C-Reactive Protein (09/27/2017 10:34 AM EST) C REACTIVE PROTEIN 2.3(H) 0 - 0.5 mg/L [facility] Blood 09/27/2017 10:3 4 AM EST 09/27/2017 10:39 AM EST Amna Espinoza MD LAB BLOOD ORDERABLES Final Re sult [facility] [address] [place] [address] * (ABNORMAL) Hypersensitivity Pneumonitis Screen (09/27/2017 10:34 AM EST) A. tenuis Ab, IgG 2.7 <12.0 MCG/ML [facility] A.fumigatis Ab, IgG 40.6 <46.0 mcg/mL [facility] A. pullulans Ab, IgG 4.3 <18.0 MCG/ML [facility] M. faeni Ab, IgG 4.3 <5.0 MCG/ML [facility] P. notatum Ab, IgG 43.5(H) <22.0 MCG/ML [facility] Phoma Ab, IgG 3.6 <8.0 MCG/ML [facility] T. vulgaris Ab, IgG 11.1 <13.0 MCG/ML [facility] T. viride Ab, IGG 4.3 <10.0 MCG/ML [facility] Comment: (NOTE) Antibody levels greater than the reference range indicate that the patient has been immunologically sensitized to the antigen. The significance of elevated IgG depends on the nature of the antigen and the patient's clinical history. The test method was the [employer] ImmunoCAP. *This test was developed and its performance characteristics determined by [employer]. It has not been cleared or approved by the U.S. Food and Drug Administration. Test Performed by: [facility], [employer] [address] [place] [address] Blood 09/27/2017 10:3 4 AM EST 09/27/2017 10:38 AM EST Amna Espinoza MD LAB BLOOD ORDERABLES Final Re sult [facility] * Immunoglobulin E, total (09/27/2017 10:34 AM EST) Pathologist [facility] IGE 93.6 <=214 kU/L [facility] Blood 09/27/2017 10:3 4 AM EST 09/27/2017 10:38 AM EST Amna Espinoza MD LAB BLOOD ORDERABLES Final Re sult [facility] [address] [place] [address] * Tiffanie-1 antibody (09/27/2017 10:34 AM EST) Pathologist [facility] TIFFANIE 1 IGG <0.2 <1.0 (Negative) U [facility] OF LAB MED AND PAT+ Blood 09/27/2017 10:3 4 AM EST 09/27/2017 10:38 AM EST Amna Espinoza MD LAB BLOOD ORDERABLES Final Re sult Performing Organization Address City/[facility]/ZIP Co de Phone Number [facility] LAB MED AND PAT+ [address] [place] [address] * Rheumatoid factor (09/27/2017 10:34 AM EST) RHEUMATOID FACTOR <10.0 0.0 - 14.0 IU/ml [facility] Blood 09/27/2017 10:3 4 AM EST 09/27/2017 10:39 AM EST us Amna Espinoza MD LAB BLOOD ORDERABLES Final Re sult Performing Organization Address [facility]/ZIP Co de Phone Number [address] [address] * Scl-70 antibody (09/27/2017 10:34 AM EST) SCL 70 AB, IGG <0.2 <1.0 (Negative) U [facility] LAB MED AND PAT+ Blood 09/27/2017 10:3 4 AM EST 09/27/2017 10:38 AM EST us Amna Espinoza MD LAB BLOOD ORDERABLES Final Re sult Performing Organization Address City/[facility]/ZIP Co de Phone Number [facility] OF LAB MED AND PAT+ [address] [place] [address] * (ABNORMAL) Sedimentation rate (ESR) (09/27/2017 10:34 AM EST) ESR 42(H) 0 - 20 mm/h [facility] Blood 09/27/2017 10:3 4 AM EST 09/27/2017 10:39 AM EST us Amna Espinoza MD LAB BLOOD ORDERABLES Final Re sult Performing Organization Address [facility]/ZIP Co de Phone Number [address] [address] * SS-A/SS-B antibodies (09/27/2017 10:34 AM EST) SS-A/RO IGG <0.2 <1.0 (Negative) U [facility] OF LAB MED AND PAT+ SS-B/LA IGG <0.2 <1.0 (Negative) [facility] DPT OF LAB MED AND PAT+ Blood 09/27/2017 10:3 4 AM EST 09/27/2017 10:38 AM EST us Amna Espinoza MD LAB BLOOD ORDERABLES Final Re sult [facility] MED AND PAT+ [address] [place] [address] * Antinuclear antibody (VICTOR MANUEL) (09/27/2017 10:34 AM EST) VICTOR MANUEL SCREEN ON HEP 2 Negative Negative [facility] Blood 09/27/2017 10:3 4 AM EST 09/27/2017 10:39 AM EST us Amna Espinoza MD LAB BLOOD ORDERABLES Final Re sult Performing Organization Address City/[facility]/ZIP Co de Phone Number [facility] [address] [place] [address] documented in this encounter Visit Diagnoses Diagnosis Dyspnea on exertion Other dyspnea and respiratory abnormality documented in this encounter Care Teams Compress Machine Operator Relationship Specialty Start Date End Date Robinson Mora MD [address] [place] [phone] [email or web address] PCP - General 07/02/17 Silas Puckett MD [address] [place] [address] [place] [address] Surgeon Bariatrics 07/27/21 documented as of this encounter Additional Source Comments The information contained in this document represents components of the legal health record. It is not the complete legal health record.[facility]
--- OUTSIDE RECORDS SUMMARY | 2025-05-25 10:25 | XMS_ITS | Encounter Summary ---
Author Organization [facility] Address [address] [place] [address] Phone Care Team Providers Care Senior Inspector Name Role Phone Robinson Mora MD Primary Care Prov ider Silas Puckett MD Unavailable [phone] Encounter Details Date Type Department Care Team (Late st Contact Info) Description 11/01/2017 Transcribe Orders [facility] Lab [address] [place] [address] Amna Espinoza MD [address] [place] [address] [phone] [email or web address] Social History Tobacco Use Types Packs/Day Years [...] filedocumented in this encounter Care Teams Senior Inspector Relationship Specialty Start Date End Date Robinson Mora MD [address] [place] [phone] [email or web address] PCP - General 07/02/17 Silas Puckett MD [address] [place] [address] [place] [address] Surgeon Bariatrics 07/27/21 documented as of this encounter Additional Source Comments The information contained in this document represents components of the legal health record. It is not the complete legal health record.[facility]
--- OUTSIDE RECORDS SUMMARY | 2025-05-25 10:25 | XMS_ITS | Encounter Summary ---
Author Organization [facility] Address [address] [place] [address] Phone Care Team Providers Care Actuarial Associate Name Role Phone Robinson Mora MD Primary Care Prov ider Silas Puckett MD Unavailable [phone] Encounter Details Date Type Department Care Team (Late st Contact Info) Description 01/08/2018 Procedure Pass [facility], Ct Scan - [address] [phone] Social History Tobacco Use Types Packs/Day Years [...] documented as of this encounter Care Teams Actuarial Associate Relationship Specialty Start Date End Date Robinson Mora MD [address] [place] [phone] [email or web address] PCP - General 07/02/17 Silas Puckett MD [address] [place] [address] [place] [address] Surgeon Bariatrics 07/27/21 documented as of this encounter Additional Source Comments The information contained in this document represents components of the legal health record. It is not the complete legal health record.[facility]
--- OUTSIDE RECORDS SUMMARY | 2025-05-25 10:25 | XMS_ITS | Encounter Summary ---
Author Organization [facility] Address [address] [place] [id number] Phone Care Team Providers Care Geomorphology Teacher Name Role Phone Robinson Mora MD Primary Care Prov ider Silas Puckett MD Unavailable [phone] Encounter Details Date Type Department Care Team (Late st Contact Info) Description 02/11/2018 Procedure Pass [facility] Cardiac Bundler [facility] [address] [place] [id number] Social History Tobacco Use Types Packs/Day Years [...] documented as of this encounter Care Teams Geomorphology Teacher Relationship Specialty Start Date End Date Robinson Mora MD [address] [place] [phone] [email or web address] PCP - General 07/02/17 Silas Puckett MD [address] [place] [address] Dr Camacho, JORDY [id number] Surgeon Bariatrics 07/27/21 documented as of this encounter Additional Source Comments The information contained in this document represents components of the legal health record. It is not the complete legal health record.[facility]
--- OUTSIDE RECORDS SUMMARY | 2025-05-25 10:25 | XMS_ITS | Encounter Summary ---
Author Organization [facility] Address [address] [place] [phone] Phone Care Team Providers Care Stress Engineer Name Role Phone Robinson Mora MD Primary Care Prov ider Silas Puckett MD Unavailable [phone] Encounter Details Date Type Department Care Team (Late st Contact Info) Description 09/19/2017 Procedure Pass [facility] Endoscopy Admitting Dept Virtual Department [address] [place] [address] Social History Tobacco Use Types Packs/Day Years [...] on filedocumented in this encounter Care Teams Stress Engineer Relationship Specialty Start Date End Date Robinson Mora MD [address] [place] [phone] [email or web address] PCP - General 10/17/17 Silas Puckett MD [address] [place] [address] [place] [address] Surgeon Bariatrics 07/27/21 documented as of this encounter Additional Source Comments The information contained in this document represents components of the legal health record. It is not the complete legal health record.[facility]
[2025-05-25 10:42] LABS: Alanine Aminotransferase 19 U/L (0-31); Albumin Level 4.3 g/dL (3.5-5.0); Alkaline Phosphatase 68 U/L (39-117); Anion Gap 12 (12-20); Aspartate Amino Transferase 26 U/L (5-31); Blood Urea Nitrogen 13 mg/dL (9-16); Calcium 9.0 mg/dL (8.4-10.2); Carbon Dioxide 26 mmol/L (22-29); Chloride 106 mmol/L (96-108); Cholesterol 278 mg/dL (<200); Estimated Glomerular Filt Rate > 60; HDL Cholesterol 71 mg/dL (>40); Iron 106 mcg/dL (30-160); Percent Iron Saturation 33 % (15-50); Potassium 4.4 mmol/L (3.3-5.1); Sodium 140 mmol/L (135-145); Total Iron Binding Capacity 318 mcg/dL (228-428); Total Protein 7.8 g/dL (6.5-8.0); Triglycerides 85 mg/dL (<150); Unsaturated Iron Binding 212 ug/dL
[2025-05-25 11:02] LABS: Folate 15.4 ng/mL (> or = 4.0); Vitamin B12 545 pg/mL (200-900)
[2025-05-25 11:04] LABS: Ferritin 71 ng/mL (10-250)
== END 2025-05-25 09:04 | disposition home or self-care (01) ==
LOC: HO.LAB 09:03
PROVIDERS: PCP Family Medicine; Visit Provider Physician Assistant Surgical
DX: Z13.1 Encounter for screening for diabetes mellitus (principal); Z13.6 Encounter for screening for cardiovascular disorders; Z13.29 Encounter for screening for other suspected endocrine disorder; Z98.84 Bariatric surgery status
CPT/HCPCS: 36415; 80053; 80061; 82306; 82607; 82728; 82746; 83036; 83525; 83540; 84425; 84443; 84590; 84630; 85025; 86140